=== PATIENT | female | born 1960 | race Caucasian/White ===

== ENCOUNTER 2025-05-01 08:53 | Outpatient (OUT) | payer MEDICARE, SELFPAY ==
--- OUTSIDE RECORDS SUMMARY | 2025-04-29 15:15 | XMS_ITS | Encounter Summary ---
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 [facility] [address] [place] [address] Phone: tel: fax: [facility] [address] [place] [address] Phone: tel: fax: Referral IDStatusReasonStart DateExpiration DateVisits RequestedVisits [id number]/27/20254/ Encounter Details DateTypeDepartmentCare Team (Latest Contact Info)Zsnshbeqgxb40/27/2025 3:15 PM EDTOffice Visit [facility] [address] [place] [phone] Wong Graves, MERRILL 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 Never07/19/2024Humiliation, Afraid, Rape, and Kick questionnaireAnswerDate RecordedWithin the last year, have you been afraid of your partner or ex-partner?No07/19/2024Within the last year, have you been humiliated or emotionally abused in other ways by your partner or ex-partner?No07/19/2024 Within the last year, have you been kicked, hit, slapped, or otherwise physically hurt by your partner or ex-partner?No07/19/2024Within the last year, have you been raped or forced to have any kind of sexual activity by your part ner or ex-partner?No07/19/2024Social Connection and Isolation PanelAnswerDate RecordedIn a typical week, how many times do you talk on the phone with family, friends, or neighbors?Once a week07/19/2024How often do you get together with friends or relatives?Once a week07/19/2024How often do you attend episcopalian or evangelical services?Never07/19/2024Do you belong to any clubs or organizations such as episcopalian groups, unions, fraternal or athletic groups, or school groups?No 07/19/2024How often do you attend meetings of the clubs or organizations you belong to?Never07/19/2024re you , , , , never , or living with a partner?Gtgkvia1507/19/2024UDIT-CAnswerDate RecordedQ1: How often do you have a drink containing alcohol?Never07/19/2024Q2: How many drinks containing alcohol do you have on a typical day when you are drinking? Patient does not drink07/19/2024Q3: How often do you have six or more drinks on one occasion?Never07/19/2024Overall Financial Resource Strain (CARDIA)AnswerDate RecordedHow hard is it for you to pay for the very basics like food, housing, medical care, and heating?Not hard at all07/19/2024PHQ-2AnswerDate Recorded Patient Health Questionnaire-2 [facility] [place] [facility] Occup[facility] - Occupational Stress QuestionnaireAnswerDate RecordedDo you feel stress - tense, restless, nervous, or anxious, or unable to sleep at night because your mind is troubled all the time - these days?Not at all07/19/2024Exercise Vital SignAnswerDate RecordedOn average, how many days per week do you engage in moderate to strenuous exercise (like a brisk walk)?2 days07/19/2024On average, how many minutes do you engage in exercise at this level?30 min07/19/2024Hunger Vital SignAnswerDate RecordedWithin the past 12 months, you worried that your food would run out before you got the money to buymore.Never true07/19/2024 Within the past 12 months, the food you bought just didn't last and you didn't have money to get more.Never true07/19/2024PRAPARE - TransportationAnswerDate RecordedIn the past 12 months, has lack of transportation kept you from medical appointments or from getting medications?No07/19/2024In the past 12 months, has lack of transportation kept you from meetings, work, or from getting things needed for daily living?No07/19/2024Housing Stability Vital SignAnswerDate RecordedIn the last 12 months, was there a time when you were not able to pay the mortgage or rent on time?No03/21/2023In the last 12 months, how many places have you lived?In the last 12 months, was there a time when you did not have a steady place to sleep or slept in ashelter (including now)?No 03/21/2023Housing Stability Vital SignAnswerDate RecordedIn the last 12 months, was there a time when you were not able to pay the mortgage or rent on time?No 07/19/2024In the past 12 months, how many times have you moved where you were living?t any time in the past 12 months, were you homeless or living in a long-term (including now)?No07/19/2024CommentsNoSex and Gender InformationValueDate RecordedSex Assigned at BirthNot on fileLegal SexFemale 09/15/2022 11:07 PM EDTGender IdentityNot on fileSexual OrientationNot on file documented as of this encounter Progress Notes * Wong Graves, MERRILL - 04/29/2025 3:15 PM EDT FOOT [facility] VISIT CC: Stress fracture follow up, right foot HPI: This 65 y.o. female with PMH indicated below presents for follow up of right foot stress fracture. Since last visit patient states she has been wearing surgical shoe while ambulating with cane. States she continues to have pain and edema to the region. She relates that she does have osteopeniaand is on Prolia every 6 months for this. States she has not seen her provider in some time regarding this. She relates she has continued compression sleeve but does still have edema. She has historyof stress fracture in the past to her 5th metatarsal. Denies any other pedal complaints. PCP: Keyshawn Schumacher MD Past Medical History: Diagnosis Date Abnormal cortisol level Brain cyst 09/2018 COVID-19 Current use of steroid medication Degenerative disorder of bone Depression with anxiety Dry mouth and eyes Fibromyalgia Hip bursitis, left 03/2019 Hypertension Obesity Orthostatic hypotension Osteoarthritis Osteoporosis Plantar warts Right Foot Rheumatoid arthritis (HCC) Secondary adrenal insufficiency (HCC) Sjogren syndrome, unspecified (HCC) Sleep apnea Syncope Current Outpatient Medications Medication Sig Dispense Refill acetaminophen (Tylenol) 500 MG tablet Take 500 mg by mouth every 6 (six) hours if needed for mild pain atorvastatin (Lipitor) 20 MG tablet Take 1 tablet (20 mg) by mouth Daily (Patient taking differently: Take 20 mg by mouth Daily) 90 tablet 0 Calcium Carbonate-Vit D-Min (CALCIUM 1200 PO) Take 1,200 mg by mouth Daily cholecalciferol (Vitamin D-3) 125 MCG (5000 UT) capsule Take 5,000 Units by mouth Daily cyclobenzaprine (Flexeril) 10 MG tablet Take 1 tablet (10 mg) by mouth 3 (three) times a day as needed for muscle spasms 30 tablet 2 denosumab (Prolia) 60 MG/ML solution prefilled syringe Inject 60 mg under the skin every 6 (six) months doxepin (SINEquan) 10 MG capsule Take 20 mg by mouth at bedtime DULoxetine (Cymbalta) [address] capsule Take 1 capsule (60 mg) by mouth Daily Do not crush or chew. (Patient taking differently: Take 60 mg by mouth Daily Do not crush or chew.) 90 capsule 1 ertapenem (INVanz) 1 g injection folic acid (Folvite) 1 MG tablet Take 1 mg by mouth Daily hydroxychloroquine (Plaquenil) 200 MG tablet Take 1 tablet by mouth in the morning and 1 tablet before bedtime. lisinopril 5 MG tablet Take 1 tablet (5 mg) by mouth Daily (Patient taking differently: Take 5 mg by mouth Daily) 30 tablet 11 meloxicam (Mobic) 15 MG tablet methotrexate 2.5 MG tablet Take 150 mg by mouth 1 (one) time per week. omega-3 (FISH OIL) 300 MG capsule pregabalin (Lyrica) 150 MG capsule Take 1 capsule (150 mg) by mouth in the morning and 1 capsule (150 mg) before bedtime. 60 capsule 2 Prevnar 20 0.5 ML vaccine riTUXimab (Rituxan) 100 MG/10ML chemo injection Infuse into a venous catheter every 6 (six) months SEMAGLUTIDE SC Inject 1.2 mg under the skin 1 (one) time per week Prescribed by [facility] weight management. [facility] tiZANidine (Zanaflex) 4 MG tablet Take 1 tablet (4 mg) by mouth every 8 (eight) hours if needed formuscle spasms 40 tablet 3 traMADol (Ultram) 50 MG tablet hydrocortisone (Cortef) 10 MG tablet TAKE 2 TABLETS BY MOUTH EVERY MORNING AT BREAKFAST AND TAKE ONE TABLET BY MOUTH EVERY EVENING AT DINNER 180 tablet 3 meloxicam (Mobic) 15 MG tablet Take 1 tablet (15 mg) by mouth Daily 30 tablet 0 No current facility-administered medications for this visit. No Known Allergies Physical examination: There were no vitals taken for this visit. On General Observation: Patient is a pleasant, cooperative, well developed 65 y.o. adult female. The patient is alert and oriented to time, place and person. Patient has normal affect and mood. Vascular: DP and PT pulses are palpable. CFT less than 3 seconds to all digits. Skin temperature iswarm to cool from proximal to distal bilateral. Hair growth is not noted. Mild edema to top of foot, overlying 4th and 5th metatarsal base of right foot. + varicosities noted. Neuro: Light touch intact. Derm: Skin texture and turgor within normal limits. No rashes, subcutaneous nodules, or open lesions noted. No hyperkeratotic tissue. No ecchymosis. Musc: Decreased medial longitudinal arch. Muscle strength is 4/5 for all muscle groups including dorsiflexors, plantarflexors, everters, and inverters. There is pinpoint pain to palpation overlying the dorsal aspect of the 4th metatarsal proximal shaft of the right foot. + pain to 5th metatarsal styloid process and base. There is an accompanying local effusion to this area. No pain to palpation tarsometatarsal joint complex or with range of motion of tarsometatarsal joints. Ankle joint ROM is decreased, STJ, and MTJ ROM full without pain or crepitus bilateral. 04/29/25 Imaging Result: Radiographs: 3 views right foot were taken and reviewed. Radiographic impression: Subacute 5th metatarsal stress fracture with increased sclerosis and concern for recurrent stress fracture vs nonunion. Acute 4th metatarsal lateral midshaft fracture noted with extension of fracture line since last visit without angulation or displacement. No acute osseouschanges. No osteolytic or osteoblastic lesions appreciated. No soft tissue gas. No discernible massnoted. Midfoot OA noted. Bone density appear typical for age of patient. Assessment: Encounter Diagnoses Name Primary? 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 The patient was educated on clinical and radiographic findings, diagnosis and treatment plans. Patient state that she understands all that has been explained and all questions were answered to her apparent satisfaction. Etiology and tx options were discussed in detail with the pt. - Patient seen and evaluated - XR obtained and reviewed with 4th metatarsal stress fracture noted however again appearing incomplete at this time but worsening in comparison to prior film as well as concern for non union vs repeat stress fracture at site of prior 5th metatarsal stress fracture. Patient has pain and edema to site on exam. Discussed need for CT to evaluate nonunion of site and possible need for bone stimulator. - Discussed need for protected weightbearing and modification of activity to allow for healing. Continue limited WB with surgical shoe. Advised patient to wear at all times weightbearing. Ok to remove at rest. -Continue Vitamin D supplement as well as calcium in diet. Patient to contact Dr. Gallardo regarding her osteopenia and now 2x stress fracture of her foot to discuss her current care plan. - Advised patient to minimize activity. - Advised patient on use of anti-inflammatories, continue tylenol as needed. RX for Mobic sent to patient pharmacy with instructions for use. - RICE therapy. -CT of Right foot ordered today. Patient will be called to schedule. 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, subsequent encounter Expected: 04/29/2025, Expires: 04/29/2026documented as of this encounter Goals GoalPatient Goal TypeAssociated ProblemsRecent ProgressPatient-Stated?Author Help patient manage antidepressant medication Care PlanPatient on antidepressant monitoring Marisol Fraire, W[employer]HOUSE HANDLER Baseline PHQ-9 Care PlanBaseline PHQ-9NoMarisol Benoit NPdocumented as of this encounter Procedures Procedure NamePriorityDate/TimeAssociated DiagnosisCommentsXR FOOT 3+ VIEWS ZXLJYNvcdozq76/27/2025 4:09 PM EDT Stress fracture of right foot with routine healing, subsequent encounter Right foot pain documented in this encounter Results * XR foot 3+ views right (04/29/2025 4:09 PM EDT)Anatomical RegionLaterality ModalityLower Extremities, FootRightRadiographic ImagingSpecimen (Source) Anatomical Location / LateralityCollection Method / VolumeCollection Time Received Time Narrative 04/29/2025 4:09 PM EDT Imaging Result: Radiographs: 3 views right foot were taken and reviewed. Radiographic impression: Subacute 5th metatarsal stress fracture with increased sclerosis and concern for recurrent stress fracture vs nonunion. Acute 4th metatarsal lateral midshaft fracture noted with extension of fracture line since last visit without angulation or displacement. No acute osseous changes. ??No osteolytic or osteoblastic lesions appreciated. No soft tissue gas. ??No discernible mass noted. Midfoot OA noted. Bone density appear typical for age of patient. 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, subsequent encounter documented in this encounter Additional Health Concerns Active ProblemsNoted DateDiagnosed DatePatient on antidepressant monitoring plan 3Baseline PHQ-9002/23/2023ssessmentNoted TimePHQ-9 Depression Total Score: 7009/06/2023 9:05 AM ESTdocumented as of this encounter Care Teams Team MemberRelationshipSpecialtyStart DateEnd Date Keyshawn Schumacher MD [address] [place] [address] PCP - GeneralFamily Medicine11/25/22 Marisol Benoit NP [address] [place] [address] PCP - Guero MARTINEZ02/01/25 Estefany Serrano [employer]ER [address] [place] [address] Nurse PractitionerFamily [facility]03/14/25documented as of this encounter
--- OUTSIDE RECORDS SUMMARY | 2025-04-30 06:28 | XMS_ITS | Continuity of Care Document ---
Author Organization [facility] Address [address] [place] [address] Phone Care Team Providers Care Paving Contractor Name Role Phone Keyshawn Schumacher MD Primary Care Provider Delia Mcgowan APRN Attending Provider Anthony Crockett MD Attending Provider Rosalva Massey DNP Attending Provider [phone] Keo Coon MD Referring Provider [phone] Renard Monroe DO Attending Provider [phone] Rosalva Perez DOOR BUILDER-C Attending Provider Unav Rosalva Steve DOOR BUILDER-C Referring Provider Unav ailable Anthony Tripp MD Attending Provider Care Teams Patient Care Team Team Status: Active Member Role/Relationship Status Dates Keyshawn Schumacher MD Primary Care Provider Active Visit Care Team Team Status: Inactive Member Role/Relationship Status Dates Keyshawn Schumacher MD Primary Care Provider Active S tart: January 31, 2025 End: January 31, 2025Steven Reyes ProviderActiveStart: January 31, 2025 End: January 31, 2025 Visit Care Team Team Status: Inactive Member Role/Relationship Status Dates Keyshawn Schumacher MD Primary Care Provider Active S tart: February 07, 2025 End: February 07, 2025Thomas Olexa , MDAttending ProviderActiveStart: February 07, 2025 End: February 07, 2025 Visit Care Team Team Status: Inactive Member Role/Relationship Status Dates Keyshawn Schumacher MD Primary Care Provider Active S tart: February 20, 2025 End: February 20, 2025Elena Turovskaya , APRNAttending ProviderActiveStart: February 20, 2025 End: February 20, 2025 Visit Care Team Team Status: Inactive Member Role/Relationship Status Dates Keyshawn Schumacher MD Primary Care Provider Active S tart: February 21, 2025 End: February 21omas Olexa , MDAttending ProviderActiveStart: February 21, 2025 End: February 21, 2025 Visit Care Team Team Status: Inactive Member Role/Relationship Status Dates Keyshawn Schumacher MD Primary Care Provider Active S tart: February 26, 2025 End: February 26, 2025Elena Turovskaya , APRNAttending ProviderActiveStart: February 26, 2025 End: February 26, 2025 Visit Care Team Team Status: Inactive Member Role/Relationship Status Dates Keyshawn Schumacher MD Primary Care Provider Active S tart: March 05, 2025 End: March 05, 2025Jekg Massey , DNPAttending ProviderActiveStart: March 05, 2025 End: March 05, 2025 Visit Care Team Team Status: Inactive Member Role/Relationship Status Dates Keyshawn Schumacher MD Primary Care Provider Active S tart: March 19, 2025 End: March 19, 2025Thomas Olexa , MDAttending ProviderActiveStart: March 19, 2025 End: March 19, 2025Mattroger Coon MDReferring ProviderActiveStart: March 19, 2025 End: March 19, 2025 Visit Care Team Team Status: Inactive Member Role/Relationship Status Dates Keyshawn Schumacher MD Primary Care Provider Active S tart: April 04, 2025 End: April 04, 2025Renard Monroe DOAttending ProviderActiveStart: April 04, 2025 End: April 04, 2025 Visit Care Team Team Status: Active Member Role/Relationship Status Dates Keyshawn Schumacher MD Primary Care Provider Active S tart: April 04, 2025 Rosalva Perez DOOR BUILDER-CAttending ProviderActiveStart: April 04, 2025 Rosalva Perez DOOR BUILDER-CReferring ProviderActiveStart: April 04, 2025 Visit Care Team Team Status: Inactive Member Role/Relationship Status Dates Keyshawn Schumacher MD Primary Care Provider Active S tart: April 09, 2025 End: April 09, 2025Thfrancisco Tripp MDAttending ProviderActiveStart: April 09, 2025 End: April 09, 2025 Visit Care Team Team Status: Inactive Member Role/Relationship Status Dates Keyshawn Schumacher MD Primary Care Provider Active S tart: April 10, 2025 End: April 10, 2025Renard Monroe DOAttending ProviderActiveStart: April 10, 2025 End: April 10, 2025 Visit Care Team Team Status: Active Member Role/Relationship Status Dates Keyshawn Schumacher MD Primary Care Provider Active S tart: April 29, 2025 Renardterese Monroe DOAttending ProviderActiveStart: April 29, 2025 Patient Care Team Team Status: Inactive Member Role/Relationship Status Dates Keyshawn Schumacher MD Primary Care Provider Active S tart: April 30, 2025 End: April 30, 2025Jekg Massey DNPAttending ProviderActiveStart: April 30, 2025 End: April 30, 2025 Chief Complaint and Reason for Visit Chief Complaint Admit Date 2 wk po staple removed January 31, 2025 1 0:38am M81.0 February 07, 2025 10: 15am Z98.1 February 20, 2025 7: 11am DEXA SCAN RESULTS February 21, 2025 8: 52am po February 26, 2025 8: 15am 8 week March 05, 2025 9:42am m85.80 z78.0 e83.51 m05.79 m15.0 z79.899 March 19, 2025 8:06am Z98.1 M47.816 April 04, 2025 7: 29am M81.0 April 04, 2025 1: 47pm RECHECK April 09, 2025 2: 32pm po check April 10, 2025 8: 13am Spondylosis of lumbar spine April 8:00am 8 week April 30, 2025 9 :21am Reason for Visit Admit Date History of lumbar fusion January 31, 2025 10:38am Encounter for medication management Augu 2024 8:52am Hx of fracture February 21, 2025 8: 52am Low calcium levels February 21, 2025 8: 52am Osteopenia February 21, 2025 8: 52am Post-menopausal February 21, 2025 8: 52am Lumbar spondylosis February 26, 2025 8: 15am Abnormal weight gain March 05, 2025 9:42am Arthritis of both hips March 05 9:42am Arthritis of lumbosacral spine March 05, 2025 9:42am BMI 45.0-49.9, adult March 05, 2025 9:42am Chronic pain March 05, 2025 9:42am Chronic steroid use March 05, 2025 9:42am DDD (degenerative disc disease), cervica l March 05, 2025 9:42am Dietary surveillance and counseling Mar 9:42am Exercise counseling March 05, 2025 9:42am Fibromyalgia March 05, 2025 9:42am Hypertension March 05, 2025 9:42am Obesity, Class III, BMI 40-49.9 (morbid obesity) March 05, 2025 9:42am ILIANA on CPAP March 05, 2025 9:42am Osteoporosis March 05, 2025 9:42am Rheumatoid arthritis March 05, 2025 9:42am Sjogren's disease March 05, 2025 9:42am Arthritis of lumbosacral spine April 092024 2:32pm Cervical spine pain April 09, 2025 2: 32pm Chronic pain April 09, 2025 2: 32pm Myalgia April 09, 2025 2: 32pm Trochanteric bursitis of right hip Octob 2024 2:32pm Lumbar spondylosis April 10, 2025 8: 13am Abnormal weight gain April 30, 2025 9:21am Arthritis of both hips April 30 9:21am Arthritis of lumbosacral spine April 042024 9:21am BMI 45.0-49.9, adult April 30, 2025 9:21am Chronic pain April 30, 2025 9 :21am Chronic steroid use April 30, 2025 9 :21am DDD (degenerative disc disease), cervica l April 30, 2025 9:21am Dietary surveillance and counseling Octo 2024 9:21am Exercise counseling April 30, 2025 9 :21am Fibromyalgia April 30, 2025 9 :21am Hypertension April 30, 2025 9 :21am Obesity, Class III, BMI 40-49.9 (morbid obesity) April 30, 2025 9:21am ILIANA on CPAP April 30, 2025 9 :21am Osteoporosis April 30, 2025 9 :21am Rheumatoid arthritis April 30, 2025 9:21am Sjogren's disease April 30, 2025 9 :21am Reason for Referral Type Reason(s) Provider Provider Contact Information P rovider Address Start Date Spondylosis of lumbar spine M47.816 - Spondylosis without myelopathy or radiculopathy, lumbar zwtprdA84.816 - Spondylosis without myelopathy or radiculopathy, lumbar regionBone Yocha Dehe Physical TherapyWork Phone: [phone] [employer] [facility] [place] [id number] [address]24 Allergies, Adverse Reactions, Alerts Allergen Type Severity Reaction Last Updated Verified Status No Known Allergies Allergy Unknown April 30, 2025 9:58amYesActive Social History Smoking Status Status Start Date End Date Date of Observa tion Never smoked tobacco (finding) January 17, 2025 7:01am Observation Status Observation Response Date of Response Legal Sex Female (finding) [facility] Family History Relationship Condition Age at Onset Recorded Date/T isadora mother Unknown Malignant neoplasm of lungUnknownMalignant neoplasmUnknownfatherHeart disease UnknownMyocardial infarctionUnknownDeceasedUnknownsisterType 2 diabetes mellitus UnknownOverweightUnknownDeceasedUnknown Problems Active Problems Problem Diagnosis/Recorded Date Onset Date Stat us Right carpal tunnel syndrome June 28, 2024 10:58 am Unknown Active Cervical spine pain April 09, 2025 3:19pm Unknown Active Cataracts, bilateral April 23, 2021 1:32pm Unknown Active Sjogren's disease August 09, 2022 12:56pm Unknown Active Rheumatoid arthritis August 17, 2019 2:16pm Unknow n Active Class 3 severe obesity with body mass index (BMI) of 50.0 to 59.9 in adult August 23, 2024 10:49am Unknown Active Exercise counseling August 23, 2024 9:51am Unknown Active Other longterm (current) drug therapy January 24, 2024 4:01pm Unknown Active Trochanteric bursitis of right hip July 19, 2024 4:41pm Unknown Active Lumbar radiculopathy April 06, 2024 3:25pm Unknown Active ILIANA on CPAP August 23, 2024 10:35am Unknown Active Lumbar stenosis January 09, 2025 1:43pm Unknown Act savanna Other spondylosis with radic ulopathy, lumbar region September 10, 2023 12:26pm Unknown Active Fracture of right proximal ulna July 05, 2024 11:0 6am Unknown Active Chronic steroid use March 31, 2024 1:19am Unknow n Active Status post total knee repla cement, left May 12, 2021 11:01am Unknown Active Myalgia April 09, 2025 3:19pm Unknown Act savanna Encounter for medication management January 11, 2025 10 :06am Unknown Active Fibroid uterus August 17, 2019 5:11pm Unknown Active Chronic pain September 10, 2023 12:26pm Unknown Acti ve Osteoporosis August 17, 2019 2:17pm Unknown A ctive Dietary surveillance and counseling August 23 9:51am Unknown Active Polyp of gallbladder August 17, 2019 5:11pm Unknow n Active Osteoarthritis of right hip July 19, 2024 4:39pm Unknown Active Abnormal weight gain August 23, 2024 9:51am Unknow n Active Fibromyalgia August 17, 2019 2:17pm Unknown A ctive Post-menopausal January 11, 2025 10:06am Unknown A ctive Osteopenia February 19, 2025 2:48pm Unknown Act savanna Arthritis of both hips July 19, 2024 4:38pm Unkno wn Active History of lumbar fusion January 31, 2025 10:44am Unkno wn Active DDD (degenerative disc disea se), cervical May 01, 2024 11:28am Unknown Active Ulnar fracture March 31, 2024 1:18am Unknown Active BMI 50.0-59.9, adult August 23, 2024 10:49am Unkno wn Active BMI 45.0-49.9, adult November 15, 2024 9:55am Unknown Active Hx of fracture February 19, 2025 2:49pm Unknown A ctive Obesity, Class III, BMI 40-4 9.9 (morbid obesity) November 15, 2024 9:55am Unknown Active Osteoarthritis of carpometac arpal joint of right thumb June 28, 2024 10:57am Unknown Active Hypertension November 15, 2024 10:04am Unknown Activ e Constipation August 23, 2024 10:32am Unknown Active Lumbar spondylosis December 31, 2024 10:06am Unknown Active Arthritis of lumbosacral spine September 10, 2023 12:26pm Unknown Active Arthritis of lumbosacral spine May 01, 2024 11:2 8am Unknown Active Arthritis of right elbow July 05, 2024 11:06am Unk nown Active Arthritis of right wrist May 01, 2024 11:28am Un known Active Low calcium levels February 21, 2025 9:24am Unknown Active Inactive/Resolved Problems Problem Diagnosis/Recorded Date Onset Date Stat us Abscess of lower back June 06, 2024 5:23pm Unknow n Resolved Leg muscle spasm April 06, 2024 3:21pm Unknown Resolved Postoperative pain of extremity July 03, 2020 9: 31am Unknown Resolved COVID-19 June 09, 2020 1:36pm Unknown Re solved De Quervain's tenosynovitis, right June 29, 2024 11:20am Unknown Resolved Trigger finger, right ring finger June 29, 2024 11:20am Unknown Resolved Trigger finger, left index finger May 01, 2024 1 1:28am Unknown Resolved Trigger ring finger of left hand May 01, 2024 11 :28am Unknown Resolved Trochanteric bursitis, left hip May 01, 2024 11: 28am Unknown Resolved Carpal tunnel syndrome August 19, 2022 3:51pm Unkn own Resolved Impaired mobility and activi ties of daily living April 04, 2024 1:52pm Unknown Resolved Receiving intravenous antibi otic treatment as outpatient July 09, 2024 4:37pm Unknown Resolved Acute exacerbation of chroni c low back pain March 30, 2024 11:55am Unknown Resolved Osteoarthritis of left hip September 10, 2023 12:26pm Unk nown Resolved Intractable back pain March 30, 2024 10:32pm Unk nown Resolved Uncontrolled pain April 06, 2024 3:20pm Unknown Resolved Leukocytosis August 17, 2019 5:11pm Unknown R esolved Rupture of UCL of right thumb August 19, 2022 3:52 pm Unknown Resolved Trigger thumb, right thumb June 28, 2024 10:57am Unknown Resolved Trigger finger August 19, 2022 3:51pm Unknown Resolved Right wrist pain June 29, 2024 11:20am Unknown Resolved Hip pain July 19, 2024 4:26pm Unknown Re solved Cellulitis and abscess of ot her specified site June 07, 2024 10:56am Unknown Resolved Abdominal pain August 17, 2019 5:11pm Unknown Resolved Paraspinal abscess June 06, 2024 10:57pm Unknown Resolved Arthritis of carpometacarpal (CMC) joint of thumb July 03, 2020 9:32am Unknown Resolved Fall March 31, 2024 1:18am Unknown Resolved Medications Medication Status Dose Units Route Directions Qty Days Refills S tart Date Stop Date End Date Reason(s) Instructions Adherence Meloxicam 15 mg tablet Discontinued 0 .ROUTE.DGRCCFO228Pnanxb 2023 9:11amMarch 2024 8:30amTAKE 1 TABLET BY MOUTH DAILYMeloxicam 15 mg tabletDiscontinued0.ROUTE.IYMFNWW139Ndnqk 2024 8:30amJune 2024 1:09pmTAKE 1 TABLET BY MOUTH DAILYSemaglutide/NAM/MeCbl 0.3 mg/0.25 mLDiscontinued0.25MLSUBCUTevery oexj7008Hql 2024 12:00amMay 2024 10:04amClass 3 severe obesity with body mass index (BMI) of 50.0 to 59.9 in adult Body mass index (BMI) of 50.0 to 59.9 in adult Obesity, class 3 Morbid (severe) obesity due to excess calories Body mass index [BMI] 50.0-59.9, adultBuderer Drug Compounded Pre-filled Syringes using Semaglutide Base 0.3 mg/Niacinamide 0.25 mg and Methylcobalamin 1 mcg Dispense 1 mL - (Four 0.25 mL pre-filled syringes)Meloxicam 15 mg tablet Discontinued0.ROUTE.GGMPRNG550Tpxt 2024 1:09pmJuly 2024 1:39pmTAKE 1 TABLET BY MOUTH DAILYCalcium Carbonate 500 mg calcium (1,250 mg) vbrcrcRssudf962 MGPOThree times jfxiu54830Yhqptx 2024 12:00amComplies with drug therapy Citalopram (Celexa) 20 mg JqcfpoKcijjlktgnzt45VOPLDemfl morningbruary 2019 1:00amAugust 2023 9:35amMethotrexate Sodium 15 mg TabletDiscontinued 25MGPOevery weekFebruary 2019 1:00amDeceer 2019 10:24amFolic Acid 1 mg TvdxdcEpljzktzrxzt4BEOCCcwgi morningFebruary 2019 1:00amOctcarroll county memorial hospital 2023 12:03pmHydroxychloroquine 200 mg QijwdzYyeowtcqwhmd393ZVMEErpqz daily August 17, 2019 1:00amJuly 2024 9:07amRARituximab (Rituxan) 10 mg/mL DwwlrikpdalJyvmibzzstws68HSJHVNYSJ 6 MONTHSFebruary 2019 1:00amNoveer 2020 9:08amSjogren'sDuloxetine (Cymbalta) 60 mg Capsule,Delayed Release(Dr/Ec)Jdfarkyynnuq51PWWJIgqqp morningbruary 2019 1:00amOctcarroll county memorial hospital 2023 12:03pmOmega 8-Whc-Nyl-Fish Oil (Fish Oil) 1,000 mg (120 mg-180 mg) ZjplqojPqnusunrwwwr4DZKAJNqjujRgrzhglp 2019 1:00amOctcarroll county memorial hospital 2023 12:03pmMeloxicam 15 mg HbsqyvOndisieiimqa29PRNYBilmaUmzcvmsa 2019 1:00am May 12, 2021 9:09amarthritisCalcium Carbonate (Calcium 600) 600 mg calcium (1,500 mg) QlkpfjQgekuqfyhlfd8860FKUOZmxktPdzfhplh 2019 1:00amOctober 2023 12:92viMo-Qi-Ftho-Fa-Herbal Cmplx#190 (Vitamin D3 Complete) 18 mg iron-800 mcg-150 mg WegnbfFnyrqiqczagg415JUHXTqbojZjrocsqi 2019 1:00am April 17, 2024 12:03pmGlucos Sul 8xnj-Jqe-Oyjgr-C-Mn (Glucosamine Chondroitin) 550-30-1 mg QqqjqrbVcznhxwokjeo7AXXXDBwitsYwtcuqqs 2019 1:00amOctober 2023 12:03pmLisinopril 10 mg zymferOpolzjveadej89YIRZTbfxc morningDecember 2019 1:00amOctober 2020 1:44pmHydroxyzine Pamoate 50 mg CdhngbjCvrxkvumydsd70JIXEC9Y as needed for Muscle Xlxfp0Hoosvwkp2020 1:00amFebruary 2022 12:48pmAspirin 81 mg Tablet,Delayed Release (Dr/Ec) Lqqvqvsbifhc22WUDLLecze sxbmf8Udzcwjfl2020 1:00amFebruary 2022 12:47pmOxycodone 5 mg OmjdxtGskkcfkxpkux80ADSPAnuzg 4 hours as needed for Pain Scale 6 - 100November 2020February 2022 12:48pmOxycodone 5 mg Tablet Yunttqenbxxw2RXAYLvmwy 4 hours as needed for Pain Scale 1 - 50November 2020August 09, 2022 12:49pmAtorvastatin 20 mg pjbcehXjfvfg40FPDBIrgag morning March 30, 2024 12:00amComplies with drug therapyDoxepin 10 mg capsule Dukqanusjypm71EPSNOecgb dailySept2023 12:00amOctober 2023 12:03pmHydrocortisone 10 mg uecdrfEtpygf01PZIJSduhj morningSept2023 12:00amComplies with drug therapyPrednisone 20 mg fqizcfQyhvnehrgojz88XLHSVyigi 100Sept2023 12:00amOctober 2023 10:56pmadminister with food or milkOxycodone-Acetaminophen (Percocet) 5-325 mg aeklyfZvbqtrjssobu3SXSKUHouty 8 hours as needed for ujna307Mnwykbogl 2023October 2023 1:36pmAcute exacerbation of chronic low back pain Low back pain, unspecified Other chronic painPregabalin 150 mg ybpxcwnLrqyph842QHNDUtbxz dailySept2023 12:00amComplies with drug therapyAcetaminophen (Tylenol) 325 mg TxdeuuDbpkgbwlbjny237TWNEV2T as needed for Mild Qagd73228Eefdeby 2023 12:00amOctober 2023 4:11pmSennosides-Docusate Sodium 8.6-50 mg Tablet Etzapwfublnl4IPKOPMdlui iktzm14408Wryadxw 2023 12:00amOctober 2023 12:03pmFamotidine 20 mg JyconrXeepppcmieqd67RAOCVmgpi llfwl59004Xhosymp 2023 12:00amOctober 2023 12:03pmOxycodone 5 mg VgiyksVtlbvgttnjzo9VEHUP5L as needed for Pain Scale 1 - 5930Octcarroll county memorial hospital 2023October 2023 12:03pm Intractable back pain Dorsalgia, unspecifiedMethotrexate Sodium 2.5 mg qniqakEwfxwnsvlpkq59WHRSdskzz weekDeceer 2019 1:00amNoveer 2020 9:08amRAtake on tuesday Hydrocodone-Acetaminophen (Lyman) 5-325 mg tabletDiscontinued1 - 2TABPOEVERY 4-6 HOURS as needed for lggc5277Nsvilvoh 2019October 2020 1:44pm Postoperative pain of extremity Arthritis of carpometacarpal (CMC) joint of thumb Other acute postprocedural painDoxycycline Hyclate 100 mg waffjrUlkihdixzmya556 MGPOTwice unrac8308Idzzymfk 2019 1:00amOctober 2020 1:43pmMeloxicam 15 mg zwxbkqNsogapjscrod85WUXVLunsy eveningFebruary 2022 1:00amAugust 2023 9:11amMethotrexate Sodium 2.5 mg eycglvNczdgzxtvmpt29ZCXOkgzur week August 09, 2022 1:00amJuly 2024 9:07amevery tuesdayAmitriptyline 25 mg GoanzrBpjnpsuleirm84CRKNXhlez at bedtimeFebruary 2022 1:00amOctober 2023 12:03pmRomosozumab-Aqqg (Evenity) 105 mg/1.17 mL VylzsyvMtdfctmkqilx399MA ZDHEMHA20PJmefkrza 2022 1:00amDecember 2022 8:19amRituximab (Rituxan) 10 mg/mL FmftrbshnyvUssgqpcknrkd72YEKEAGFLO 6 MONTHSFebruary 2022 1:00am January 24, 2024 3:49pmHydrocodone-Acetaminophen 5-325 mg tabletDiscontinued1 - 2 TABPOEVERY 4-6 HOURS as needed for qnjh5740Hyemrbkc ecember 2022 8:19amPostoperative pain of extremity Carpal tunnel syndrome Trigger finger Rupture of UCL of right thumb Other acute postprocedural pain Carpal tunnel syndrome, unspecified upper limb Trigger finger, unspecified finger Sprain of metacarpophalangeal joint of right thumb, initial encounterDoxycycline Hyclate 100 mg vbflsbTqrickwqgzie151DHQVQrewr wpzbl7447Cwlkhnyd 2022 1:00amJune 2023 8:14amHydrocortisone (Cortef) 10 mg uyuzyuDrnndq18EVWV BedtimeOctober 2023 12:00amComplies with drug therapyCyclobenzaprine 10 mg fihxufWgwlvsebcjva48KFPMXzliw times daily as needed for muscle spasmsOctober 2023 12:00amJuly 2024 9:07amAcetaminophen 500 mg TabletDiscontinued 323JOKOM9E as needed for Slis365357Ychftcg 2023 12:00amJuly 2024 9:07amSennosides-Docusate Sodium 8.6-50 mg OujrybPsqolexxxkhl4TARTJNwimt daily40 100October 2023 12:03pmFebruary 2024 10:29amDoxepin 10 mg capsule Qakkaqpcuadw18RWTLBmbfm sykpc70033Cptzrez 2023 12:03pmDecember 2023 6:58pmCalcium Carbonate (Calcium 600) 600 mg calcium (1,500 mg) Tablet Zxxqentuvuds6253PRVAOgoht30680Jodksly 2023 12:03pmFebruary 2024 10:29amFamotidine 20 mg UsjwhzXaalgy83CGHJEspwd jflys15020Galjlqc 2023 12:03pmComplies with drug therapyAmitriptyline 25 mg HiebdbRulmeliluklc24WFRJ Daily at qhqubgn11525Hgsrquo 15th, 2024 12:03pmDeceer 2023 6:53pmFolic Acid 1 mg DoylrgEcenct9OYXJQdgof xwaexpc50627Xfgdojw 15th, 2024 12:03pmOn Hold: Resume on 01/24/25.Complies with drug therapyOxycodone 5 mg TabletDiscontinued5 DMCJB7R as needed for Pain Scale 1 - 72513Kafhkxf 2023October 2023 9:17amIntractable back pain Dorsalgia, unspecifiedDuloxetine (Cymbalta) 60 mg Capsule,Delayed Release(Dr/Ec) Hnnlzs19DCDOSawmg xgsiysa77014Tvcgizh 2023 12:03pmComplies with drug therapyOmega 5-Wgt-Jpz-Fish Oil (Fish Oil) 1,000 mg (120 mg-180 mg) Capsule Acqgepiebyel1RJEAASajwr31508Glzlqot 2023 12:03pmJuly 2024 9:07am Cx-Je-Mvze-Fa-Herbal Cmplx#190 (Vitamin D3 Complete) 18 mg iron-800 mcg-150 mg AdruajGyrnwt116UNPLUuqsu27855Ibjwdpq 2023 12:03pmComplies with drug therapyGlucos Sul 1viu-Lax-Tawml-C-Mn (Glucosamine Chondroitin) 550-30-1 mg UmoiysxUtlvwcsfnhgq5VOKEQAhubr23443Rkmkpzi 2023 12:03pmDecember 2023 6:58pmDoxepin 10 mg lkgazpnJmqdhg19KWDFEziid dailyascension [facility]20[facility] 1:00am Complies with drug therapyGlucos Sul 7nxs-Pgu-Fbecz-C-Mn (Glucosamine Chondroitin) 550-30-1 mg ScnjslpVfoefcjqljjh4QIESMGenlx daily2023 1:00amDecember 2023 12:18pmErtapenem 1 gram Recon IegvHvupljyellco4YWPM T51G37249Xmmshjrp 2023 1:00amFebruary 2024 10:28amMeloxicam 15 mg fconchQhrzjtlkcnip82PRMTJhcdg at bedtimeJuly 2024 12:00amJuly 2024 9:07amTAKE 1 TABLET BY MOUTH DAILYCyclobenzaprine 10 mg etovxiNynsqejdlmnq94TQAW Three times daily as needed for back ncxsau893Dekm 2024 12:00amOctober 2024 2:52pmCephalexin 500 mg pujxqbjZnppikfenmrk944NZEKRmmkz times uvktx216 January 19, 2025 12:00amJuly 2024 10:43amOxycodone 5 mg tabletDiscontinued5 MGPOEVERY 4-6 HOURS as needed for fjeg4198Xmbr 2024July 2024 11:05am Spondylosis of lumbar spine Spondylosis without myelopathy or radiculopathy, lumbar regionDenosumab (Prolia) 60 mg/mL yccohlvXjtpzl35LBDPLGGGIQBII 6 MONTHSJuly 2023 12:00amComplies with drug therapyTramadol 50 mg gjspqeFnzaeaisuypv93SRKNNkixz daily as needed for zrns65783Dxlf 2023 8:30amJuly 2023 9:14amOther spondylosis with radiculopathy, lumbar region Other spondylosis with radiculopathy, lumbar regionTramadol 50 mg tablet Wkcgobnscwdn79CQHLTzonz daily as needed for boam70737Qees 2023 9:13am March 26, 2024 10:05amOther spondylosis with radiculopathy, lumbar region Other spondylosis with radiculopathy, lumbar regionTramadol 50 mg tablet Rybndprbvrhl01LKGQVkfrl daily as needed for cnig02562Hkjbtlb 2024 4:51pm September 13, 2024 8:47amOther spondylosis with radiculopathy, lumbar region Other spondylosis with radiculopathy, lumbar regionLisinopril 2.5 mg tablet Discontinued2.5MGPODailyMay 2024 12:00amJuly 2024 10:23amTramadol 50 mg rqttrhBhbrcssynaqo62IGUEQtssz daily as needed for fyju45607Yfvhx 2024 8:47amMay 2024 9:02amOther spondylosis with radiculopathy, lumbar region Other spondylosis with radiculopathy, lumbar regionPolyethylene Glycol 3350 (Miralax) 17 gram/dose jrqxaiOftvwk11DLAAXvdcv as needed for constipationNovember 14, 2024 12:00amComplies with drug therapyLactobacillus Combination No.9 (Adult 50 Plus Probiotic) 4 billion cell bqooqrvVguual2030SDJ CELLSPODailyy 2024 12:00amadminister with a mealComplies with drug therapy Semaglutide/NAM/MeCbl 0.6 mg/0.5 mLDiscontinued0.5MLSUBCUTevery 2024 12:00amJuly 2024 10:43amMorbid obesity with body mass index (BMI) of 40.0 to 49.9 Body mass index (BMI) of 45.0 to 49.9 in adult Hypertension Morbid (severe) obesity due to excess calories Body mass index [BMI] 45.0-49.9, adult Essential (primary) hypertensionBuderer Drug Compounded Pre-filled Syringes using Semaglutide Base 0.6 mg/Niacinamide 0.5 mg and Methylcobalamin 2 mcg Dispense 2 mL - (Four 0.5 mL pre-filled syringes)Semaglutide/NAM/MeCbl 0.6 mg/0.5 mLDiscontinued0.5MLSUBCUTevery 2024 12:00amJuly 2024 10:23amBuderer Drug Compounded Pre-filled Syringes using Semaglutide Base 0.6 mg/Niacinamide 0.5 mg and Methylcobalamin 2 mcg Dispense 2 mL - (Four 0.5 mL pre-filled syringes)Semaglutide/NAM/MeCbl 0.6 mg/0.5 mLDiscontinued0.5MLSUBCUTevery 2024 12:00amJuly 2024 10:23amBody mass index (BMI) of 45.0 to 49.9 in adult Morbid obesity with body mass index (BMI) of 40.0 to 49.9 Hypertension Body mass index [BMI] 45.0-49.9, adult Morbid (severe) obesity due to excess calories Essential (primary) hypertensionBuderer Drug Compounded Pre-filled Syringes using Semaglutide Base 0.6 mg/Niacinamide 0.5 mg and Methylcobalamin 2 mcg Dispense 2 mL - (Four 0.5 mL pre-filled syringes)Tramadol 50 mg tablet Omgenfrelwyd03TUYGFwnzc daily as needed for lere46218Elu 2024 9:02amJuly 2024 9:07amOther spondylosis with radiculopathy, lumbar region Other spondylosis with radiculopathy, lumbar regionTizanidine 4 mg tabletActive MGPOOctober 2024 12:00amComplies with drug therapyRomosozumab-Aqqg 105 mg/1.17 mL hkfiavnLzlxrourzrvo572MJWNNOFFAYPMH 6 MONTHSMarch 2023 12:00am August 23, 2024 10:29amFreeTextSi.34 mL Subcutaneous; Note: Source Status: Taking; Provider: Chris Blackwell ( )Tramadol 50 mg hkvgmvRnwpvgxlpuun95EEIOYbpez daily as needed for fubb60409Lzicf 2023 12:00amApril 2023 9:06amOther spondylosis with radiculopathy, lumbar region Other spondylosis with radiculopathy, lumbar regionTramadol 50 mg tablet Ahmllkstqqyf73RTVFXjhsr daily as needed for mqyz73857Rycbg 2023 9:06amJune 2023 8:31amOther spondylosis with radiculopathy, lumbar region Other spondylosis with radiculopathy, lumbar regionTramadol 50 mg tablet Lnyhvuhrmzid50KAFQTzjze daily as needed for ybdy42475Siknpjo 2023 12:00am July 19, 2024 4:51pmOther spondylosis with radiculopathy, lumbar region Other spondylosis with radiculopathy, lumbar regionTramadol 50 mg tablet Fyxnptwejcwz55LIOZAdizb daily as needed for kgme60658Dajzexjpg 2023 10:05amOctober 2023 12:04pmOther spondylosis with radiculopathy, lumbar region Other spondylosis with radiculopathy, lumbar regionCalcium Carbonate (Calcium 600) 600 mg calcium (1,500 mg) bcybqpOdejjkfqwvef4919CUZHXmlvxEhsvoxmj 2024 10:27amJuly 2024 9:07amSennosides-Docusate Sodium 8.6-50 mg tablet Lncuux6WGZVYYrxzl daily as needed for constipationFebruary 2024 10:29am Complies with drug therapyTirzepatide (Weight Loss) (Zepbound) 2.5 mg/0.5 mL pen injectorDiscontinued2.5MGSUBCUTevery zyqz3412Exhzfzty 2024 1:00amApril 2024 9:18amOSA on CPAP Class 3 severe obesity with body mass index (BMI) of 50.0 to 59.9 in adult Body mass index (BMI) of 50.0 to 59.9 in adult Obstructive sleep apnea (adult) (pediatric) Obesity, class 3 Morbid (severe) obesity due to excess calories Body mass index [BMI] 50.0-59.9, adultfor 4 weeks and then increase to 5 mg once weekly if tolerating wellSemaglutide Base 0.3 mg/0.25 mLDiscontinued0.25ML SUBCUTevery ipgk5295Gpsrc 3rd, 2025 12:00amMay 2024 8:07amClass 3 severe obesity with body mass index (BMI) of 50.0 to 59.9 in adult Body mass index (BMI) of 50.0 to 59.9 in adult ILIANA on CPAP Obesity, class 3 Morbid (severe) obesity due to excess calories Body mass index [BMI] 50.0-59.9, adult Obstructive sleep apnea (adult) (pediatric)[facility] Pre-filled Syringes using Semaglutide Base. Dispense 1 mL = (Four 0.25 mL pre-filled syringes)Lisinopril 5 mg tabletActive5 MGPOEvery morningJuly 2024 12:00amComplies with drug therapy Semaglutide/NAM/MeCbl 1.2 mg/0.33 mLDiscontinued0.33MLSUBCUTevery week1.75788 January 07, 2025 12:00amJuly 2024 1:39pmOSA on CPAP Morbid obesity with body mass index (BMI) of 40.0 to 49.9 Body mass index (BMI) of 45.0 to 49.9 in adult Hypertension Obstructive sleep apnea (adult) (pediatric) Morbid (severe) obesity due to excess calories Body mass index [BMI] 45.0-49.9, adult Essential (primary) hypertensionBuderer Drug Compounded Pre-filled Syringes using Semaglutide Base 1.2 mg/Niacinamide 0.66 mg and Methylcobalamin 2.6 mcg Dispense 1.32 mL - (Four 0.33 mL pre-filled syringes)Methotrexate Sodium 2.5 mg tabletActive2.5MGPOevery weekSept2024 12:00amComplies with drug therapySemaglutide/NAM/MeCbl 1.2 mg/0.33 mLDiscontinued0.33MLSUBCUTevery week 1.320Sept2024 12:00amSept2024 10:18amBude[facility] Drug Compounded Pre-filled Syringes using Semaglutide Base 1.2 mg/Niacinamide 0.66 mg and Methylcobalamin 2.6 mcg Dispense 1.32 mL - (Four 0.33 mL pre-filled syringes)Semaglutide/NAM/MeCbl 1.8 mg/0.5 mLDiscontinued0.5MLSUBCUTevery piar5907Cmxwdezav 2nd, 2025 12:00amOctober 2024 10:14amMorbid obesity with body mass index (BMI) of 40.0 to 49.9 Body mass index (BMI) of 45.0 to 49.9 in adult ILIANA on CPAP Morbid (severe) obesity due to excess calories Body mass index [BMI] 45.0-49.9, adult Obstructive sleep apnea (adult) (pediatric)[facility] Pre-filled Syringes using Semaglutide Base 1.8 mg/Niacinamide 1 mg and Methylcobalamin 4 mcg Dispense 2 mL - (Four 0.5 mL pre-filled syringes)Oxycodone 5 mg tablet Tovteubmrvov4LKZKKTCPH 4-6 HOURS as needed for kfoc3769Kagx 2024Sept2024 10:00amSpondylosis of lumbar spine Spondylosis without myelopathy or radiculopathy, lumbar regionMeloxicam 15 mg aavmfeFbarix38QIIQVnldpHmenzuy 2024 12:00amComplies with drug therapy Tramadol 50 mg cyodtnJpysvv92IAUGZthso dailyOctcarroll [facility] hospital 2024 12:00amComplies with drug therapyHydroxychloroquine 200 mg ziibzfFssccn904HAEGTgfxSgfcuxl 2024 12:00amComplies with drug therapySemaglutde/NAM/MeCbl 2.268 mg/0.63 mL Active0.63MLSUBCUTevery week2.39669Vlsybls 2024 12:00amMorbid obesity with body mass index (BMI) of 40.0 to 49.9 Body mass index (BMI) of 45.0 to 49.9 in adult Hypertension ILIANA on CPAP Morbid (severe) obesity due to excess calories Body mass index [BMI] 45.0-49.9, adult Essential (primary) hypertension Obstructive sleep apnea (adult) (pediatric)[facility] Pre-filled Syringes using Semaglutide Base 2.268 mg/Niacinamide 1.26 mg andMethylcobalamin 5 mcg Dispense 2.52 mL - (Four 0.63 mL pre-filled syringes)Complies with drug therapy Immunizations Immunization Event Date Not Given Reason Dose Number Inspector Elevators Lot Number Reason(s) Given Vaccine Information Statement (VIS) Detail Administration Location COVID-19 mRNA [place] (Polar) September 10 COVID-19 mRNA [place] (Polar)October 01OVID-19 mRNA, [place] (Polar)April 091Pneumococcal Conjugate Vaccine, 13 valentFebruary 1Pneumococcal Polysacc. Vaccine, 23 valentJanuary 2018Quadrivalent InfluenzaOctober 2018Quadrivalent InfluenzaAugust 2019Zoster Vaccine Recombinant, AdjuvantedAugust 2020Tetanus, Diphtheria adult, 5 Lf pres free absFebruary 2020 Medical Equipment Device Date Implanted Device Details Tendon/ligament bone anchor, non-bioabsorbable August 19, 2022 GRAHAM: [id number] Issuing Agency: [facility] Device Id: [id number] Expiration Date: 2026-10-01 Lot Number: [id number]/ligament bone anchor, non-bioabsorbableDecember 2019UDI: ()[id number] Issuing Agency: [facility] Device Id: [id number] Expiration Date: 2025-04-02 Lot Number: [id number] cement, non-medicatedNovember 2020UDI: ()[id number] Issuing Agency: [facility] Device Id: [id number] Expiration Date: 2025-04-02 Lot Number: [id number] cement, non-medicatedNovember 2020UDI: ()[id number] Issuing Agency: [facility] Device Id: [id number] Expiration Date: 2025-04-02 Lot Number: [id number] knee femur prosthesis, metallicNovember 2020 GRAHAM: ()[id number] Issuing Agency: [facility] Device Id: [id number] Expiration Date: 2027-07-03 Lot Number: [id number] insertNovember 2020UDI: ()[id number] Issuing Agency: [facility] Device Id: [id number] Expiration Date: 2025-11-13 Lot Number: [id number] patella prosthesisNovember 2020UDI: ()[id number] Issuing Agency: [facility] Device Id: [id number] Expiration Date: 2025-12-18 Lot Number: [id number] stemNovember 2020UDI: ()[id number] Issuing Agency: [facility] Device Id: [id number] Expiration Date: 2031-02-07 Lot Number: [id number] knee tibia prosthesis, metallicNovember 2020 GRAHAM: ()[id number] Issuing Agency: [facility] Device Id: [id number] Expiration Date: 2031-01-04 Lot Number: [id number] fusion graft kitJuly 2024UDI: ()[id number] Issuing Agency: [facility] Device Id: [id number] Expiration Date: 2026-04-02 Lot Number: [id number] spinal fusion cage, non-sterileJuly 2024 GRAHAM: ()[id number] Issuing Agency: [facility] Device Id: [id number] Lot Number: [id number]-kbrhf internal spinal fixation system, non-sterileJuly 2024UDI: +[id number] Issuing Agency: [facility] Device Id: [id number] internal spinal fixation system, non-sterile January 17, 2025UDI: +[id number] Issuing Agency: [facility] Device Id: [id number]-pzuvb internal spinal fixation system, non-sterile January 17, 2025UDI: +[id number] Issuing Agency: [facility] Device Id: [id number] internal spinal fixation system, non-sterile January 17, 2025UDI: +[id number] Issuing Agency: [facility] Device Id: [id number]-lphey internal spinal fixation system, non-sterile January 17, 2025UDI: +[id number] Issuing Agency: [facility] Device Id: [id number] internal spinal fixation system, non-sterile January 17, 2025UDI: +[id number] Issuing Agency: [facility] Device Id: [id number]-jstli internal spinal fixation system, non-sterile January 17, 2025UDI: +[id number] Issuing Agency: [facility] Device Id: [id number] internal spinal fixation system, non-sterile January 17, 2025UDI: +[id number] Issuing Agency: [facility] Device Id: [id number] internal spinal fixation system, non-sterile January 17, 2025UDI: +[id number] Issuing Agency: [facility] Device Id: [id number]-jacdj internal spinal fixation system, non-sterile January 17, 2025UDI: +[id number] Issuing Agency: [facility] Device Id: [id number] Procedures Procedure Date Performed Status XR lumbar spine 2-3V* February 20, 2025 7:12am c ompleted XR dexa axial skeleton February 07, 2025 10:18am completed XR lumbar spine 2-3V* April 04, 2025 7:32am c ompleted Relevant Diagnostic Tests and/or Laboratory Data Laboratory Results Test Collection Date/Time Result Date/Time Result Interpretation Reference Range Result Comment Performing Site Corrected White Blood Count March 19, 2025 8:08am March 19, 2025 12:21pm 8.5 10*3/uL 3.8-11.6[facility] [id number] [address] [facility] 429[address]Pmuluotzfpm WBC CountSeptember 2024 8:08amSeptember 2024 12:21pm8.5 10*3/uL3.8-11.6FMercy [facility] [id number] [address] [facility] 25150Njn Blood CountSeptember 2024 8:08amSeptember 2024 12:21pm4.61 10*6/uL3.60-5.00[facility] [id number] [address] [facility] 48017RhbxtadpanPoxxffefv 2024 8:08amSeptember 2024 12:21pm13.2 g/dL11.8-15.4FMercy [facility] [id number] [address] [facility] 79981PbquprmrfiNlpgrnvah 2024 8:08amSeptember 2024 12:21pm40.1 %34.0-46.4FMercy Health [facility] [id number] [address] [facility] 08979Ghoz Corpuscular VolumeSeptember 2024 8:08amSeptember 2024 12:21pm87.0 mC54-449UodlxnmpeFirelands [facility] [id number] [address] [facility] 98622Bbcs Corpuscular HemoglobinSeptember 2024 8:08amSeptember 2024 12:21pm28.6 pg24.7-34.3FMercy Health [facility] [id number] [address] [facility] 62622Ibap Corpuscular Hemoglobin ConcentSeptember 2024 8:08am March 19, 2025 12:21pm32.9 g/dL32.0-35.0[facility] [id number] [address] [facility] 50424Fjv Cell Distribution WidthSept2024 8:08amSeptember 2024 12:21pm17.3 %Above high yljnrk38.9-15.3FMercy Health St[facility] [id number] [address] [facility] 43602Yjpgxbcw CountSeptember 2024 8:08amSept2024 12:01mp159 10*3/sO419-246GvweatnzmFirelands [facility] [id number] [address] [facility] 45336Fdsn Platelet VolumeSeptember 2024 8:08amSept2024 12:21pm9.2 fL6.3-10[address]7FMercy [facility] [address] [id number] [address] [facility] 12543Gtcuxkguxir (%) (Auto)March 19, 2025 8:08amSept2024 12:21pm39.0 %.[facility] [id number] [address] [facility] 31646Zyffjfjtonv (%) (Auto)March 19, 2025 8:08amSept2024 12:21pm43.0 %.[facility] [id number] [address] [facility] 06194Ulnhcmydr (%) (Auto)March 19, 2025 8:08amSept2024 12:21pm13.6 %.[facility] [id number] [address] [facility] 07479Fcayayuynus (%) (Auto)March 19, 2025 8:08amSept2024 12:21pm3.9 %.[facility] [id number] [address] [facility] 27353Fibfrwgmr (%) (Auto)March 19, 2025 8:08amSept2024 12:21pm0.5 %.[facility] [id number] [address] [facility] 09860Hnomtjjsz RBC Relative Count (auto)March 19, 2025 8:08am March 19, 2025 12:21pm0.2 /100{WBC}0-0.5FMercy [facility] St[facility] [id number] [address] [facility] 34593Dynipgzgdcj # (Auto)March 19, 2025 8:08amSept2024 12:21pm3.3 10*3/uL1.8-7.7FMercy Health St[facility] [id number] [address] [facility] 33722Kpowqvsapvo # (Auto)March 19, 2025 8:08amSept2024 12:21pm3.7 10*3/uL1.00-4.8[facility] [id number] [address] [facility] 35414Ovwlojexs # (Auto)March 19, 2025 8:08amSept2024 12:21pm1.2 10*3/uLAbove high normal0.0-0.8[facility] [id number] [address] [facility] 25121Kcfodkiwenj # (Auto)March 19, 2025 8:08amSept2024 12:21pm0.3 10*3/uL0.0-0.45[facility] [id number] [address] [facility] 08391Yxiexhxoc # (Auto)March 19, 2025 8:08amSeptember 2024 12:21pm0.0 10*3/uL0.0-0.2FMercy Health St[facility] [id number] [address] [place] [address] 38538Meuafbvbsxy Sedimentation RateSeptember 2024 8:08am March 19, 2025 1:42pm32 mm/hrAbove high normal0-29[facility] [id number] [address] [place] [address] 83671Cfrajtn LevelSeptember 2024 8:08amSept2024 12:32pm81 mg/qA44-475BUT recommended reference rangeRandom Glucose Reference Range is dependent on time and content of last meal. Glucose of more than 200 mg/dL in a nonstressed, ambulatory subject supports the diagnosisof Diabetes Mellitus.[facility] [id number] [address] [facility] 64671Glejm Urea NitrogenSeptember 2024 8:08amSept2024 12:32pm17 mg/dL7-25[facility] [id number] [address] [place] [address] 74718UphrhuuysoOqsetkvww 2024 8:08amSept2024 12:32pm1.00 mg/dL0.60-1.20[facility] [id number] [address] [place] [address] 65395Rdvqhofli GFR (CKD-EPI)March 19, 2025 8:08amSept2024 12:32pm> 60.0 mL/MinFirelands Regional Medical [facility] [id number] [address] [place] [address] 90250Mxvlta LevelSeptember 2024 8:08amSept2024 12:27rg799 mmol/M536-770MuojfuxrkFirelands Regional [facility] [id number] [address] [place] [address] 00134Rpvirzaxx LevelSeptember 2024 8:08amSeptember 2024 12:32pm3.9 mmol/L3.5-5.1FMercy Health St[facility] [id number] [address] [facility] 78305Kftijrig LevelSeptember 2024 8:08amSeptember 2024 12:55zc299 mmol/D16-242DurtvyepjFirelands Regional [facility] [id number] [address] [facility] 70976Sonhes Dioxide LevelSeptember 2024 8:08amSeptember 2024 12:32pm29.2 mmol/L21.0-31.0[facility] [id number] [address] [facility] 82284Pkftk GapSeptember 2024 8:08amSeptember 2024 12:32pm9.7 mEq/L6.0-15.0[facility] [id number] [address] [place] [address] 24157Cmvesvt LevelSeptember 2024 8:08amSeptember 2024 12:32pm9.7 mg/dL8.6-10.3FMercy Health St[facility] [id number] [address] [place] [address] 66368Lbaot ProteinSeptember 2024 8:08amSeptember 2024 12:32pm6.8 g/dL6.4-8.9[facility] [id number] [address] [place] [address] 49433EvzdcvuCnjsbijfc 2024 8:08amSeptember 2024 12:32pm 4.0 g/dL3.5-5.7FMercy Health St[facility] [id number] [address] [place] [address] 29732PoxfcyljHpwabxuie 2024 8:08amSeptember 2024 12:32pm 2.8 g/dLFirelands Regional Medical Center [facility] [id number] [address] [place] [address] 97072Sdeqefp/Globulin RatioSeptember 2024 8:08amSeptember 2024 12:32pm1.4FMercy Health [address] [id number] [address] [place] [address] 27445Bxfhs BilirubinSeptember 2024 8:08amSeptember 2024 12:32pm0.4 mg/dL0.3-1.0[facility] [id number] [address] [place] [address] 42673Twdiqysha Amino Transf (AST/SGOT)March 19, 2025 8:08am March 19, 2025 12:32pm20 U/C70-52SmlvzhcavFirelands Regional [facility] [id number] [address] [place] [address] 37585Rfluapz Aminotransferase (ALT/SGPT)March 19, 2025 8:08am March 19, 2025 12:32pm17 U/L7-52[facility] [id number] [address] [place] [address] 52596Avxyuqjv PhosphataseSeptember 2024 8:08amSeptember 2024 12:32pm66 U/D75-474UjzgdrkpuFirelands Regional [facility] [id number] [address] [place] [address] 64566Iexleann Creatinine Clearance (ChemSeptember 2024 8:08am March 19, 2025 12:32pmN/[facility] [id number] [address] [place] [address] Diagnostic Imaging Reports Author Lorne Bermudez [facility] HamiltonAuthoredAuminers' colfax medical centert 2024 2:09pmReportDictated Date/TimeDictated ByStatusRadiology ReportAuminers' colfax medical centert 2024 2:09pmLorne Bermudez II MDcompChillicothe VA Medical Center Main [address] [address] XRay Report Signed Patient: Brandon Diamond MR#: [id number] : 1960 Acct:[id number] Age/Sex: 64 / F ADM Date: 5 Loc: XD Room: Type: [facility] Attending Dr: Delia Mcgowan APRN Copies to: Delia Mcgowan APRN~ Ordering Provider: Delia Mcgowan APRN Date of Service: 02/20/25 XR/XR lumbar spine 2-3V*: Z98.1 - Arthrodesis status XR lumbar spine 2-3V* 02/20/2025 7:19 AM SIGNS AND SYMPTOMS: Low back pain PROTOCOLS: Frontal and lateral radiographs of the lumbar spine COMPARISON: 01/19/2025 FINDINGS: There is a slight levoconvex curvature. The bones are mineralized in anatomic alignment. There is no fracture or destructive lesion. There is posterior and intervertebral fusion at L4-5. No hardware complication or change in alignment. There is a remote compression deformity of the superior endplate of the L1 body. There is moderate severe disc height loss at L2 and L2-3. Degenerative changes are present in the sacroiliac joints. XR/XR lumbar spine 2-3V* IMPRESSION: There is posterior and intervertebral fusion at L4-5. No hardware complication or change in alignment. There is a remote compression deformity of the superior endplate of the L1 body. Degenerative changes are redemonstrated as above. Impression dictated by: Lorne Bermudez M.D. 02/20/2025 2:10 PM Dictation Location: [place] [address] Transcribed By: [facility] 02/20/25 1410 Dictated By: Lorne Bermudez II, MD 02/20/25 1409 Signed By: <Electronically signed by Lorne Bermudez II, MD in [place]> 02/20/25 1410 Author Mike Tijerina [facility] HamiltonAuthoredOctcarroll county memorial hospital 2024 9:53amReportDictated Date/TimeDictated ByStatusRadiology ReportOctober 2024 9:53amJosevidhi Tijerina Jr DOcompChillicothe [facility] Center Main [place] [address] [place] [address] XRay Report Signed Patient: Brandon Diamond MR#: [id number] : 1960 Acct:[id number] Age/Sex: 65 / F ADM Date: Loc: XD Room: Type: [facility] Attending Dr: Renard Monroe DO Copies to: Renard Monroe DO~ Ordering Provider: Renard Monroe DO Date of Service: 04/04/25 XR/XR lumbar spine 2-3V*: Z98.1 - Arthrodesis status LUMBAR SPINE - 2 views CLINICAL HISTORY: Follow-up lumbar surgery. COMPARISON: Lumbar spine 02/20/2025 FINDINGS: Posterior hardware fixation L4-L5 without hardware complication. Scoliosis is present. Stable compression deformity L1 vertebral body. Endplate and facet joint degenerative changes with moderate disc space narrowing at L1-L2 and L2-L3 similar to the prior study. XR/XR lumbar spine 2-3V* IMPRESSION: NO HARDWARE COMPLICATION. Impression dictated by: Mike Tijerina Jr., D.ORaulito 04/04/2025 9:57 AM Dictation Location: [place] [address] Transcribed By: PWS 04/04/2557 Dictated By: Mike Tijerina Jr, DO 04/04/2553 Signed By: <Electronically signed by Mike Tijerina Jr, DO in [place]> 04/04/25956 Vital Signs Vital Reading Result Reference Range Collection Date/Time Height 63.5 [in_i] January 31, 2025 10:02vtBbnyzl888.70 kgJuly 2024 10:38amBMI (Body Mass Index)51.4 kg/m2July 2024 10:78ouFrnfsx93.5 [in_i]February 21, 2025 9:03am Tycukw297.54 kgAugust 2024 9:03amBMI (Body Mass Index)50.5 kg/c5Buebnr 2024 9:38tgCphsts58 [in_i]February 26, 2025 8:49aoCbdrtb457.80 kgAugust 2024 8:19amBMI (Body Mass Index)49.1 kg/e7Dbixal 2024 8:42udCycgap24 [in_i]March 05, 2025 9:11bwOrnfqd698.90 kgSeptember 2024 9:47amHeart Rate82 /izb74-939Fozkuouxm 2024 9:47amRespiratory rate18 /glj23-29Ovtifkhig 2024 9:47amBP Plmlwfez620 mm[Hg]100-140Sept2024 9:47amBP Yziodzgwg08 mm[Hg]60-100September 2024 9:47amBMI (Body Mass Index)48.7 kg/n1Nltndobdz 2024 9:47amBody Vfkpumljfwg90.2 [degF]97.6-99.0October 2024 1:59pmHeart Rate98 /fqz96-172Sqxgiuy 2024 1:59pmRespiratory rate16 /xlf50-99Lsbvqbo 2024 1:59pmOxygen saturation by Pulse nomflwfr41 %95-100 April 04, 2025 1:59pmBP Rhgkabgl146 mm[Hg]100-140October 2024 1:59pmBP Jaroyjpno52 mm[Hg]60-100October 2024 1:29fvRdpwbr065.40 kgOctober 2024 8:17uaOmukmc91 [in_i]April 30, 2025 9:96upEwnqpw338.20 kgOctober 2024 9:32amHeart Rate77 /sna74-257MxtzjybApril 30, 2025 9:32amRespiratory rate18 /min 12-24October 2024 9:32amBP Bzasgaqg791 mm[Hg]100-140Oct2024 9:32amBP Aprtxaplf92 mm[Hg]60-100October 2024 9:32amBMI (Body Mass Index) 47.0 kg/p3Rtkwwag 2024 9:32am Advance Directives Advance Directive Response Recorded Date/ Time Advance Directives No June 11:29am Insurance Providers Guarantor Brandon Diamond Address [address] [facility] [address]Obtfgdk Info.Home Phone: Coverage Status Update:2024 Payer Group Member ID Coverage Type Subscriber Relationship to Subscriber Effective Date Expiration Date [employer] [place] Id: [id number] A Kuhn Id: [id number] [address] [facility] [address] Home Phone: Email: [email or web address] Encounter Location(s) Arrival/Admit Date Discharge/Departure Date Discharge/Departure Disposition Provider(s) Departed Physician/ Provider Office Visit -[facility] January 31, 2025 10:38am January 31, 2025 11:01am Discharged to home care or self care (routine discharge) Delia Mcgowan APRN Departed Clinical [facility] February 07, 2025 10:15am February 07, 2025 10:16am Discharged to home care or self care (routine discharge) Anthony Crockett MD Departed Clinical -[facility] February 20, 2025 7:11am February 20, 2025 7:12am Discharged to home care or self care (routine discharge) Delia Mcgowan APRN Departed Physician/ Provider Office Visit -[facility] February 21, 2025 8:52am February 21, 2025 9:27am Discharged to home care or self care (routine discharge) Anthony Crockett MD Departed Physician/ Provider Office Visit -[facility] February 26, 2025 8:15am February 26, 2025 8:49am Discharged to home care or self care (routine discharge) Delia Mcgowan APRN Departed Physician/ Provider Office Visit -[facility] March 05, 2025 9:42am March 05, 2025 10:21am Discharged to home care or self care (routine discharge) Shasha Gayle DNP Departed Clinical -[facility] [address] March 19, 2025 8:06am March 19, 2025 8:07am Discharged to home care or self care (routine discharge) Anthony Crockett MD Departed Clinical -[facility] April 04, 2025 7:29am April 04, 2025 7:30am Discharged to home care or self care (routine discharge) Renard Monroe , DO Registered Recurring -Infusion Therapy - O/P April 042024 1:47pm RUSTAM Mackey-CDeparted Physician/Provider Office Visit-[facility] BCOctober 2024 2:32pmOctober 2024 3:30pmDischarged to home care or self care (routine discharge)Lisa Garcia MDDeparted Physician/Provider Office Visit-[facility]October 2024 8:13amOctober 2024 8:39amDischarged to home care or self care (routine discharge)JEROD Griffithegistered Recurring-Physical Therapy [facility] April 29, 2025 8:00ROBBIE Paredeseparted Physician/Provider Office Visit-[facility]ctober 2024 9:21amOctober 2024 10:19amDischarged to home care or self care (routine discharge)Shasha Gayle DNP Recent Diagnosis Onset Date Admit Date History of lumbar fusion Unknown January 312024 10:38am Encounter for medication management Unknown February 21, 2025 8:52am Hx of fracture Unknown February 21 8:52am Low calcium levels Unknown February 21, 2025 8:52am Osteopenia Unknown February 21 8:52am Post-menopausal Unknown February 21 8:52am Lumbar spondylosis Unknown February 26, 2025 8:15am Abnormal weight gain Unknown March 052024 9:42am Arthritis of both hips Unknown March 05, 2025 9:42am Arthritis of lumbosacral spine Unknown S eptember 2024 9:42am BMI 45.0-49.9, adult Unknown March 052024 9:42am Chronic pain Unknown March 05 9:42am Chronic steroid use Unknown March 9:42am DDD (degenerative disc disease), cervical Unknow n March 05, 2025 9:42am Dietary surveillance and counseling Unknown March 05, 2025 9:42am Exercise counseling Unknown March 9:42am Fibromyalgia Unknown March 05 9:42am Hypertension Unknown March 05 9:42am Obesity, Class III, BMI 40-4 9.9 (morbid obesity) Unknown March 05, 2025 9:42am ILIANA on CPAP Unknown March 05 9:42am Osteoporosis Unknown March 05 9:42am Rheumatoid arthritis Unknown March 052024 9:42am Sjogren's disease Unknown March 05, 2025 9:42am Arthritis of lumbosacral spine Unknown O ctober 2024 2:32pm Cervical spine pain Unknown April 09, 2025 2:32pm Chronic pain Unknown April 09 2:32pm Myalgia Unknown April 09 2:32pm Trochanteric bursitis of right hip Unknown April 09, 2025 2:32pm Lumbar spondylosis Unknown April 10, 2025 8:13am Abnormal weight gain Unknown April 9:21am Arthritis of both hips Unknown April 042024 9:21am Arthritis of lumbosacral spine Unknown O ctober 2024 9:21am BMI 45.0-49.9, adult Unknown April 9:21am Chronic pain Unknown April 30 9:21am Chronic steroid use Unknown April 9:21am DDD (degenerative disc disease), cervical Unknow n April 30, 2025 9:21am Dietary surveillance and counseling Unknown April 30, 2025 9:21am Exercise counseling Unknown April 9:21am Fibromyalgia Unknown April 30 9:21am Hypertension Unknown April 30 9:21am Obesity, Class III, BMI 40-4 9.9 (morbid obesity) Unknown April 30, 2025 9:21am ILIANA on CPAP Unknown April 30 9:21am Osteoporosis Unknown April 30 9:21am Rheumatoid arthritis Unknown April 9:21am Sjogren's disease Unknown April 30, 2025 9:21am Assessments Diagnosis Onset Date Resolution Status Admit Date History of lumbar fusion acuteJuly 2024 10:38amEncounter for medication managementacuteAugust 2024 8:52amHx of fractureacuteAugust 2024 8:52amLow calcium levelsacute February 21, 2025 8:52amOsteopeniaacuteAugust 2024 8:52amPost-menopausal acuteAugust 2024 8:52amLumbar spondylosisacuteAugust 2024 8:15am Abnormal weight gainacuteSept2024 9:42amArthritis of both hipsacute March 05, 2025 9:42amArthritis of lumbosacral spineacuteSept2024 9:42amBMI 45.0-49.9, adultacuteSept2024 9:42amChronic painacute March 05, 2025 9:42amChronic steroid useacuteSept2024 9:42amDDD (degenerative disc disease), cervicalacuteSept2024 9:42amDietary surveillance and counselingacutept2024 9:42amExercise counseling acuteSept2024 9:42amFibromyalgiaacuteSeptember 2024 9:42am HypertensionacuteSeptember 2024 9:42amObesity, Class III, BMI 40-49.9 (morbid obesity)acuteSept2024 9:42amOSA on CPAPacuteSept2024 9:42amOsteoporosisacuteSept2024 9:42amRheumatoid arthritisacute March 05, 2025 9:42amSjogren's diseaseacuteSept2024 9:42am Arthritis of lumbosacral spineacuteOctober 2024 2:32pmCervical spine pain acuteOctober 2024 2:32pmChronic painacuteOctober 2024 2:32pmMyalgia acuteOctober 2024 2:32pmTrochanteric bursitis of right hipchronicOctober 2024 2:32pmLumbar spondylosisacuteOctober 2024 8:13amAbnormal weight gainacuteOctober 2024 9:21amArthritis of both hipsacuteOctober 2024 9:21amArthritis of lumbosacral spineacuteOctober 2024 9:21amBMI 45.0-49.9, adultacuteOctober 2024 9:21amChronic painacuteOctober 2024 9:21am Chronic steroid useacuteOctober 2024 9:21amDDD (degenerative disc disease), cervicalacuteOctober 2024 9:21amDietary surveillance and counselingacuteOctober 2024 9:21amExercise counselingacuteOctober 2024 9:21amFibromyalgiaacuteOctober 2024 9:21amHypertensionacuteOctober 2024 9:21amObesity, Class III, BMI 40-49.9 (morbid obesity)acuteOctober 2024 9:21amOSA on CPAPacuteOctober 2024 9:21amOsteoporosisacute April 30, 2025 9:21amRheumatoid arthritisacuteOctober 2024 9:21am Sjogren's diseaseacuteOctober 2024 9:21am Plan of Treatment Author Renard Hassantoddbethanie [facility] 20[facility] 8:49amIn summary this patient is a 64-year-old female status post L4-5 transforaminal lumbar interbody fusion January 17, 2025 secondary to having intractable lumbar back pain. This time) reviewed the x-rays from February 20 which demonstrate stable postoperative changes. I discussed 6-week follow-up for her 3-month follow-up at which point we will discontinue the back brace and start physical therapy. She did make mention that she has some discomfort towards the right-hand side but states that this back pain is definitely improved from what it was preoperatively. All questions were answered to the satisfaction as patient as well as her Carlo. Author Anthony Tripp [facility] 2024 3:55pmPatient's radicular pain symptoms have improved significantly since her lumbar surgery Tolerable following a recent right trochanteric bursa injection. We will continue to monitor. Patients primary complaint today is progressing lumbar pain above her recent lumbar fusion. . She has failed multiple conservative measures and would be a reasonable candidate to proceed with bilateral lumbar trigger point injections today in the office. Risks and benefits of procedure explained to patient; patient verbalizes understanding. Patient tolerated well. We will follow up with the patient in one month to re-assess, sooner if needed. Anatomy of spine discussed in detail with patient in regards to patients condition. Risk, benefits and alternatives of the procedure were explained to patient. Patient agrees to proceed. The skin area over the trigger points, were prepped and draped using standard sterile technique. Using 27g needle, 0.5% Bupivacaine with Triamcinolone injection into trigger points. Patient tolerated procedure well. No apparent complications. Above note written by RAPHAEL Gaona, Stamp Maker. Edited and approved by Dr. Anthony Tripp MD.? Author Rosalva [facility] 20[facility] 10:23amWt. Hx: Start: 08/23/24, 297 pounds Follow up: 10/04/24, 303.1 pounds Follow up: 11/15/24, 295.8 pounds Follow up: 01/07/25, 294.1 pounds Follow up: 03/05/25, 292.9 pounds (down 1.2 pounds since last OV on 11/15/24 and down 4.1 pounds since starting with our office on 08/23/24) AOM: compounded Semaglutide 1.2 mg once weekly from [facility]: 08/2024 Exercise counseling- Reinforced as a primary intervention to promote lean tissue mass/muscle preservation. Dietary surveillance and counseling: [Assignment Manager] Lead with lean protein sources and attempt 2-3 sections of plate method with each meal and snack. Continue to work on small sustainable changes to promote overall health F/u: [8 weeks] Medication considerations: increase compounded Semaglutide 1.8 mg once weekly from [facility] Treatment plan/changes: Fartun is a 65 year old female who presents today for weight management follow up. Since last visit patient is doing poor with lifestyle changes. Down 1.2 pounds since last OV on 11/15/24 and down 4.1 pounds since starting with our office on 08/23/24. Initial goals: 5% (282), 10%(267). Zepbound was approved but the cost was too much for her. She is taking compounded Semaglutide 1.2 mg once weekly from [facility]. Tolerating well with mild constipation but this is chronic for her and has not worsened since starting the compounded Semaglutide. Following with GI for this. Taking Miralax daily now. Constipation is very well controlled. Reports positive effect of weight loss, decreased appetite. Struggles with stress. Exercise consists of bike and weights 5 days per week at least 30 minutes at a time. Snacking at night is under very much control. Just had back surgery in January 2025. Does have issues with her neck as well, did have a cervical MRI done as well. Walking with walker and back brace. Not PT yet, until she is more steady. She is having a hard time with this and recovery. Overall, patient has had a rough past few weeks since back surgery. She is getting back on track though. She is down in weight and responding positively to compounded semaglutide 1.2 mg once weekly from [facility]. She would like more appetite control however so we will increase the compounded semaglutide to 1.8 mg once weekly from [facility]. Medication profile and possible side effects reviewed with patient today. Patient to take as prescribed. She will continue to follow with our registered dietitians. She will increase physical activity as she is allowed by her neurosurgeon. She will follow-up in the office with me in 8 weeks or sooner if needed. I discussed with patient that [facility] will not be able to continue to compound semaglutide by itself due to an FDA mandate.?? The cheapest branded option for a GLP-1 you would have would be between $349 per month for a small dose of Zepbound/terzepatide or $499 per month for an equivalent weight loss dosage.??The branded version of semaglutide is now also available at $499 a month. [facility] will be compounding the semaglutide with a small dose of niacinamide (a form of vitamin B3 ) and methylcobalamin (a form of vitamin B12) which can also be helpful in feeling more energetic and possibly aid in additional weight loss. ??You could continue compounded semaglutide by using that combination for weight loss if you feel comfortable not using an FDA approved product with these 3 things used together.?? Even though not FDA approved, the compounded semaglutide that they will be using will be coming from the same FDA monitored facility where it was previously obtained by [facility]. ??Compounded semaglutide in our practice has proven to be very effective for weight loss, helping to control appetite, cravings and allowing patients to eat much healthier overall.?? The results we saw with compounded semaglutide were similar to what we expected to see with the branded version of semaglutide. Risks and benefits of compounded Semaglutide treatment were discussed. Patient understands that this is not the exact formulation or dosage approved by the FDA for weight loss. We feel that we have thoroughly investigated with appropriate due diligence and using a well-established local sterile compounding pharmacy and are comfortable with their values and practices. They are also PCAB accredited and rated highly by [employer]. Patient will receive prefilled syringes provided by the compounding pharmacy to mitigate one of the most common contributor to complications due to incorrect dosing. After patient-provider discussion, we are both comfortable moving forward with this compounded version of the medication with the knowledge and research available to date. It was discussed with patient that our role is to help them to understand the underlying complex biology of obesity as a disease and offer tools and support for overall health goals and set realistic expectations for weight loss. Understands that the treatment plan is personalized to the best of knowledge and ability with priority to decreasing wt related comorbidities as well as increasing functional capacity and quality of life. Will work with pt to help overcome barriers with the understanding that treatment plan may foreign exchange position clerk time and tools, such as medications, do have limitations. Medications, as applicable, were discussed including up-to-date studies and effectiveness, risks and benefits, common side effects, MOA, etc. Regardless of medications, lifestyle change takes precedence. I highly recommended decreasing or eliminating caloric beverages especially sweetened beverages and alcohol. Pt should prioritize preplanning, shopping at the edge of the store, decreasing unhealthy food cues. I recommended packing snacks and meals when out of the home. No macronutrient is completely restricted. We discussed the addictive nature and unhealthy biological changes that occur with ultra processed food and how it may influence chronic disease. I highly recommended preference for whole foods/real foods and decrease added sugar, refined starches, and added fats. Lean unprocessed protein with each meal and each snack to help control appetite, decrease cravings and lessen muscle loss with weight loss advised. The patient will ideally try to get at least 5 or more servings of low carbohydrate veggies daily. Benefits of regular exercise including cardio and resistance training discussed and recommended, slowly increasing activity, as appropriate for the patient. Consider our labor/excavator for guidance. We offer individual and group visits from several different practitioners which was also recommended to help with long-term behavioral change and support. Recommend good sleep hygiene and the importance of adequate sleep. Circadian rhythm and the importance of mealtime. Stress reduction and controlling factors within reasonable control. The majority of today's visit was spent re-evaluating patient, counseling/educating patient on the options for the continual treatment of obesity and weight related health issues. See above treatment plan. See above treatment plan. She is scheduled with RD, keep appointment. Recommended at least 30 minutes of moderate physical activity most days of the week or 150 minutes weekly in addition to at least 2 days of strength training exercise. Blood pressure much more stable now on Lisinopril 5 mg once weekly. She will continue to follow with her pcp for this. She does have ILIANA with CPAP and follows with sleep lab routinely. Last sleep study was 2022. She is taking compounded Semaglutide to improve ILIANA and obesity. Follows with rheumatology on a routine basis. Follows with rheumatology on a routine basis. Follows with rheumatology and endocrinology on a routine basis. Follows with rheumatology and endocrinology on a routine basis. Follows with rheumatology and endocrinology on a routine basis. Follows with rheumatology and endocrinology on a routine basis. Follows with rheumatology and endocrinology on a routine basis. Follows with rheumatology and endocrinology on a routine basis. Stable at this time. Following with specialists on a routine basis. Author Delia Mcgowan [facility] 11:[id number] female who is s/p L4-5 lumbar fusion presenting today for 2-week postop follow- up. She is doing relatively well. Still having some back pain with left leg radiation, but overall much improved. Legs are somewhat weak still, for which she has been using a walker. She is receiving home health physical therapy once a week. I suggested that she inquires about outpatient therapy services for more intense treatment which the patient is agreeable. She has no bowel or bladder problems. I examined patient's posterior lumbar incision which appears unremarkable. Ly were removed today. There is no surrounding erythema or induration to the site. No drainage noted. She has no pain to palpation of the area. Patient is compliant with her LSO brace, I instructed her to continue wearing it for at least 3 months postop. I will obtain another set of x-rays in about a month, follow-up when imaging is complete. Author Fara Irby [facility] 20[facility] 9:30amDexa scan reviewed in detail with patient, demonstrating osteopenia. We discussed her lumbar spine reading may be falsely elevated due to her recent lumbar condition/surgery. Extensive discussion about current condition and treatment options available. Advised patient on appropriate calcium intake of 1200mg/day by a combination of diet and supplementation. Also advised patient on appropriate vitamin D intake of 600-800 IU/day through diet and supplementation. We discussed safe levels of sun exposure to increase vitamin D as well. We discussed the importance of weight bearing and balance exercise to maintain and improve bone health. Handouts provided on calcium intake and calcium rich foods. We discussed prescription treatment options in detail. Based on dexa scan, medical history, and patient lifestyle, we will continue with Prolia at this time. Risks and benefits were discussed in detail. Labs from 01/19/25 reviewed as low calcium. Patient will look at which exact calcium supplement she is taking and call in to discuss. May consider switching from calcium carbonate to calcium citrate, or may increase dose by 500, will make that determination based on what patient is already taking. We will plan to recheck calcium lab a month after making the dose change. Author Renard Monroe [facility] 2024 8:39amIn summary is patient is a 65-year-old female status post L4-5 transforaminal lumbar interbody fusion January 17, 2025 secondary to having tractable lumbar back pain. At this time we reviewed the x-rays from April 04. We discussed that radiographically everything appears to be stable with the postoperative changes. We discussed weaning herself out of her back brace and starting physical therapy. We discussed following up in 3 months time. For her 6-month appointment. All questions were answered to the satisfaction of the patient she is in agreement the above plan. Author Rosalva Massey [facility] 2024 10:14amWt. Hx: Start: 08/23/24, 297 pounds Follow up: 10/04/24, 303.1 pounds Follow up: 11/15/24, 295.8 pounds Follow up: 01/07/25, 294.1 pounds Follow up: 03/05/25, 292.9 pounds Follow up: 04/30/25, 282.6 pounds (down 10.3 pounds since last OV on 03/05/25 and down 14.4 pounds since starting with our office on 08/23/24) AOM: compounded Semaglutide 1.8 mg once weekly from [facility]: 08/2024 Exercise counseling- Reinforced as a primary intervention to promote lean tissue mass/muscle preservation. Dietary surveillance and counseling: [Assignment Manager] Lead with lean protein sources and attempt 2-3 sections of plate method with each meal and snack. Continue to work on small sustainable changes to promote overall health F/u: [8 weeks] Medication considerations: increase compounded Semaglutide 2.2 mg once weekly from [facility] Treatment plan/changes: Fartun is a 65 year old female who presents today for weight management follow up. Since last visit patient is doing fair with lifestyle changes. Down 10.3 pounds since last OV on 03/05/25 and down 14.4 pounds since starting with our office on 08/23/24. Initial goals: 5% (282), 10%(267). Has met her 5% weight loss goal. Zepbound was approved but the cost was too much for her. She is taking compounded Semaglutide 1.8 mg once weekly from [facility]. Tolerating well with mild constipation but this is chronic for her and has not worsened since starting the compounded Semaglutide. Following with GI for this. Taking Miralax daily now. Constipation is very well controlled. Reports positive effect of weight loss, decreased appetite. Struggles with stress. Exercise consists of bike and weights 5 days per week at least 30 minutes at a time. Has a new stress fracture to her foot, to her right foot. Still in PT for her back surgery she has had in January 2025. I discussed with patient that [facility] will not be able to continue to compound semaglutide by itself due to an FDA mandate.?? The cheapest branded option for a GLP-1 you would have would be between $349 per month for a small dose of Zepbound/terzepatide or $499 per month for an equivalent weight loss dosage.??The branded version of semaglutide is now also available at $499 a month. [facility] will be compounding the semaglutide with a small dose of niacinamide (a form of vitamin B3 ) and methylcobalamin (a form of vitamin B12) which can also be helpful in feeling more energetic and possibly aid in additional weight loss. ??You could continue compounded semaglutide by using that combination for weight loss if you feel comfortable not using an FDA approved product with these 3 things used together.?? Even though not FDA approved, the compounded semaglutide that they will be using will be coming from the same FDA monitored facility where it was previously obtained by [facility]. ??Compounded semaglutide in our practice has proven to be very effective for weight loss, helping to control appetite, cravings and allowing patients to eat much healthier overall.?? The results we saw with compounded semaglutide were similar to what we expected to see with the branded version of semaglutide. Risks and benefits of compounded Semaglutide treatment were discussed. Patient understands that this is not the exact formulation or dosage approved by the FDA for weight loss. We feel that we have thoroughly investigated with appropriate due diligence and using a well-established local sterile compounding pharmacy and are comfortable with their values and practices. They are also PCAB accredited and rated highly by [employer]. Patient will receive prefilled syringes provided by the compounding pharmacy to mitigate one of the most common contributor to complications due to incorrect dosing. After patient-provider discussion, we are both comfortable moving forward with this compounded version of the medication with the knowledge and research available to date. It was discussed with patient that our role is to help them to understand the underlying complex biology of obesity as a disease and offer tools and support for overall health goals and set realistic expectations for weight loss. Understands that the treatment plan is personalized to the best of knowledge and ability with priority to decreasing wt related comorbidities as well as increasing functional capacity and quality of life. Will work with pt to help overcome barriers with the understanding that treatment plan may foreign exchange position clerk time and tools, such as medications, do have limitations. Medications, as applicable, were discussed including up-to-date studies and effectiveness, risks and benefits, common side effects, MOA, etc. Regardless of medications, lifestyle change takes precedence. I highly recommended decreasing or eliminating caloric beverages especially sweetened beverages and alcohol. Pt should prioritize preplanning, shopping at the edge of the store, decreasing unhealthy food cues. I recommended packing snacks and meals when out of the home. No macronutrient is completely restricted. We discussed the addictive nature and unhealthy biological changes that occur with ultra processed food and how it may influence chronic disease. I highly recommended preference for whole foods/real foods and decrease added sugar, refined starches, and added fats. Lean unprocessed protein with each meal and each snack to help control appetite, decrease cravings and lessen muscle loss with weight loss advised. The patient will ideally try to get at least 5 or more servings of low carbohydrate veggies daily. Benefits of regular exercise including cardio and resistance training discussed and recommended, slowly increasing activity, as appropriate for the patient. Consider our labor/excavator for guidance. We offer individual and group visits from several different practitioners which was also recommended to help with long-term behavioral change and support. Recommend good sleep hygiene and the importance of adequate sleep. Circadian rhythm and the importance of mealtime. Stress reduction and controlling factors within reasonable control. The majority of today's visit was spent re-evaluating patient, counseling/educating patient on the options for the continual treatment of obesity and weight related health issues. See above treatment plan. See above treatment plan. She is scheduled with RD, keep appointment. Recommended at least 30 minutes of moderate physical activity most days of the week or 150 minutes weekly in addition to at least 2 days of strength training exercise. Blood pressure much more stable now on Lisinopril 5 mg once weekly. She will continue to follow with her pcp for this. She does have ILIANA with CPAP and follows with sleep lab routinely. Last sleep study was 2022. She is taking compounded Semaglutide to improve ILIANA and obesity. Follows with rheumatology on a routine basis. Follows with rheumatology on a routine basis. Follows with rheumatology and endocrinology on a routine basis. Follows with rheumatology and endocrinology on a routine basis. Follows with rheumatology and endocrinology on a routine basis. Follows with rheumatology and endocrinology on a routine basis. Follows with rheumatology and endocrinology on a routine basis. Follows with rheumatology and endocrinology on a routine basis. Stable at this time. Following with specialists on a routine basis. Future Tests Future scheduled test information is unavailable Pending Tests Test Name Ordered Date Scheduled Date XR lumbar spine 2-3V* April 10, 2025 8:36am Future Visits Future appointment information is unavailable Future Procedures Future procedure information is unavailable Future Medications Future medication information is unavailable Patient Instructions Patient instructions are unavailable
--- OUTSIDE RECORDS SUMMARY | 2025-05-01 08:56 | XMS_ITS | Encounter Summary ---
Author Organization [facility] Address [address] [place] [address] Care Team Providers Care Head Of Data Name Role Phone Keyshawn Schumacher MD Primary Care Provider Marisol Benoit TANK ERECTOR Unavailable Estefany Serrano TANK ERECTOR Unavailable [phone] Encounter Details DateTypeDepartmentCare Team (Latest Contact Info)Smisbfnzoka39/27/2025Travel Social History Tobacco UseTypesPacks/DayYears UsedDateSmoking Tobacco: NeverSmokeless Tobacco: NeverAlcohol UseStandard Drinks/WeekCommentsNever0 (1 standard drink = 0.6 oz pure alcohol)caffeine intake: 2-3 cups per day of [id number] Health Literacy AnswerDate RecordedHow often do you [...] relatives?Once a week07/19/2024How often do you attend hinduism or hinduism services?Never07/19/2024Do you belong to any clubs or organizations such as hinduism groups, unions, fraternal or athletic groups, or school groups?No 07/19/2024How often do you attend meetings of the clubs or organizations you belong to?Never07/19/2024re you , , , , never , or living with a partner?Vbbcoul1307/19/2024UDIT-CAnswerDate RecordedQ1: How often do you have a [...] hard at all07/19/2024PHQ-2AnswerDate Recorded Patient Health Questionnaire-2 [id number] [place] of Occupational Health - Occupational Stress QuestionnaireAnswerDate [...] were you homeless or living in a mcfp (including now)?No07/19/2024CommentsNoSex and Gender InformationValueDate RecordedSex Assigned at BirthNot on fileLegal SexFemale 09/15/2022 11:07 PM EDTGender IdentityNot on fileSexual OrientationNot on file documented as of this encounter Plan of Treatment DateTypeDepartmentCare Team (Latest Contact Info)Synzyrpcsdi98/17/2025 8:00 AM ESTOffice Visit [facility] [address] [place] [phone] Estefany Serrano NP [address] [place] [phone] documented as of this encounter Goals GoalPatient Goal TypeAssociated ProblemsRecent ProgressPatient-Stated?Author Help patient manage antidepressant medication Care PlanPatient on antidepressant monitoring Marisol Fraire, TANK ERECTOR Baseline PHQ-9 Care PlanBaseline PHQ-9Marisol Martell NPdocumented as of this encounter Visit Diagnoses Not on filedocumented in this encounter Additional Health Concerns Active ProblemsNoted DateDiagnosed DatePatient on antidepressant monitoring plan 02/23/2023aseline PHQ-9002/23/2023ssessmentNoted TimePHQ-9 Depression Total Score: 7009/06/2023 9:05 AM ESTdocumented as of this encounter Care Teams Team MemberRelationshipSpecialtyStart DateEnd Date Keyshawn Schumacher MD [address] [place] [address] PCP - GeneralFamily Medicine11/25/22 Marisol Benoit, GUERLINE [address] [address] PCP - [place]02/01/25 Estefany Serrano NP [address] [place] [address] Nurse PractitionerFamily Medicine03/14/25documented as of this encounter
--- OUTSIDE RECORDS SUMMARY | 2025-05-01 08:56 | XMS_ITS | Encounter Summary ---
Author Organization [facility] Address [address] [facility] [place] [address] Care Team Providers Care Account Developer Name Role Phone Keyshawn Schumacher MD Primary Care Provider [phone] Marisol Benoit AIRCRAFT ELECTRICIAN Unavailable Estefany Serrano AIRCRAFT ELECTRICIAN Unavailable [phone] Encounter Details DateTypeDepartmentCare Team (Latest Contact Info)Zdkxsgblyer67/27/2025amboo flowsheet [facility] [address] [facility] [address] [place] [address] Wong Graves DPM [address] [facility] [address] [place] [address] Social History Tobacco UseTypesPacks/DayYears UsedDateSmoking Tobacco: NeverSmokeless Tobacco: NeverAlcohol UseStandard Drinks/WeekCommentsNever0 (1 standard drink = 0.6 oz pure alcohol)caffeine intake: 2-3 cups per day of [id number] Health Literacy AnswerDate RecordedHow often do you [...] relatives?Once a week07/19/2024How often do you attend caodaism or congregational services?Never07/19/2024Do you belong to any clubs or organizations such as caodaism groups, unions, fraBest Five Reviewed or athletic groups, or school groups?No 07/19/2024How often do you attend meetings of the clubs or organizations you belong to?Never07/19/2024re you , , , , never , or living with a partner?Wlvivoh4807/19/2024UDIT-CAnswerDate RecordedQ1: How often do you have a [...] hard at all07/19/2024PHQ-2AnswerDate Recorded Patient Health Questionnaire-2 Eetbo225Finf[facility] [place] of Occupational Health - Occupational Stress QuestionnaireAnswerDate [...] steady place to sleep or slept in [facility] (including now)?No 03/21/2023Housing Stability Vital SignAnswerDate RecordedIn the last 12 months, was there a time when you were not able to pay the mortgage or rent on time?No 07/19/2024In the past 12 months, how many times have you moved where you were living?t any time in the past 12 months, were you homeless or living in a alf (including now)?No07/19/2024CommentsNoSex and Gender InformationValueDate RecordedSex Assigned at BirthNot on fileLegal SexFemale 09/15/2022 11:07 PM EDTGender IdentityNot on fileSexual OrientationNot on file documented as of this encounter Plan of Treatment DateTypeDepartmentCare Team (Latest Contact Info)Yhuunzodzgp69/17/2025 8:00 AM ESTOffice Visit [facility] [address] [place] [address] Estefany Serrano, AIRCRAFT ELECTRICIAN [address] [place] [address] documented as of this encounter Goals GoalPatient Goal TypeAssociated ProblemsRecent ProgressPatient-Stated?Author Help patient manage antidepressant medication Care PlanPatient on antidepressant monitoring planMarisol Martell NP Baseline PHQ-9 Care PlanBaseline PHQ-9Marisol Martell NPdocumented as of this encounter Visit Diagnoses Not on filedocumented in this encounter Additional Health Concerns Active ProblemsNoted DateDiagnosed DatePatient on antidepressant monitoring plan 02/23/2023aseline PHQ-9002/23/2023ssessmentNoted TimePHQ-9 Depression Total Score: 7009/06/2023 9:05 AM ESTdocumented as of this encounter Care Teams Team MemberRelationshipSpecialtyStart DateEnd Date Keyshawn Schumacher MD [address] [place] [address] PCP - GeneralFamily Medicine11/25/22 Marisol Benoit, GUERLINE [address] [place] [address] PCP - [place]02/01/25 Estefany Serrano NP [address] [place] [address] Nurse PractitionerFamily Medicine03/14/25documented as of this encounter
--- OUTSIDE RECORDS SUMMARY | 2025-05-01 08:56 | XMS_ITS | Encounter Summary ---
Author Organization [facility] Address [address] [place] [address] Care Team Providers Care Box Loader Name Role Phone Keyshawn Schumacher MD Primary Care Provider [phone] Marisol Benoit FOLDER SEAMER AUTOMATIC Unavailable Estefany Serrano FOLDER SEAMER AUTOMATIC Unavailable [phone] Encounter Details DateTypeDepartmentCare Team (Latest Contact Info)Vthpplqoejh79/26/2025Travel Social History Tobacco UseTypesPacks/DayYears UsedDateSmoking Tobacco: NeverSmokeless Tobacco: NeverAlcohol UseStandard Drinks/WeekCommentsNever0 (1 standard drink = 0.6 oz pure alcohol)caffeine intake: 2-3 cups per day of [id number] Health Literacy AnswerDate RecordedHow often do you [...] relatives?Once a week07/19/2024How often do you attend nondenominational or restorationism services?Never07/19/2024Do you belong to any clubs or organizations such as nondenominational groups, unions, fraternal or athletic groups, or school groups?No 07/19/2024How often do you attend meetings of the clubs or organizations you belong to?Never07/19/2024re you , , , , never , or living with a partner?Mwcvbqo1307/19/2024UDIT-CAnswerDate RecordedQ1: How often do you have a [...] hard at all07/19/2024PHQ-2AnswerDate Recorded Patient Health Questionnaire-2 Kcxuz705Finintermountain medical center [place] of Occupational Health - Occupational Stress QuestionnaireAnswerDate [...] were you homeless or living in a snf (including now)?No07/19/2024CommentsNoSex and Gender InformationValueDate RecordedSex Assigned at BirthNot on fileLegal SexFemale 09/15/2022 11:07 PM EDTGender IdentityNot on fileSexual OrientationNot on file documented as of this encounter Plan of Treatment DateTypeDepartmentCare Team (Latest Contact Info)Aocgbscdudv02/17/2025 8:00 AM ESTOffice Visit [facility] [address] [place] [address] Estefany Serrano NP [address] [place] [address] documented as of this encounter Goals GoalPatient Goal TypeAssociated ProblemsRecent ProgressPatient-Stated?Author Help patient manage antidepressant medication Care PlanPatient on antidepressant monitoring Marisol Fraire, FOLDER SEAMER AUTOMATIC Baseline PHQ-9 Care PlanBaseline PHQ-9Marisol Martell NPdocumented as of this encounter Visit Diagnoses Not on filedocumented in this encounter Additional Health Concerns Active ProblemsNoted DateDiagnosed DatePatient on antidepressant monitoring plan 02/23/2023aseline PHQ-9002/23/2023ssessmentNoted TimePHQ-9 Depression Total Score: 7009/06/2023 9:05 AM ESTdocumented as of this encounter Care Teams Team MemberRelationshipSpecialtyStart DateEnd Date Keyshawn Schumacher MD [address] [place] [address] PCP - GeneralFamily Medicine11/25/22 Marisol Benoit, GUERLINE [address] [address] PCP - [place]02/01/25 Estefany Serrano NP [address] [place] [address] Nurse PractitionerFamily Medicine03/14/25documented as of this encounter
--- OUTSIDE RECORDS SUMMARY | 2025-05-01 08:56 | XMS_ITS | Clinical Summary ---
Author Organization [facility] Address [address] [place] [address] Care Team Providers Care Senior Health Physics Technician Name Role Phone Keyshawn Schumacher MD Primary Care Provider [phone] Marisol Benoit NP Unavailable Estefany Serrano INSTITUTION LIBRARIAN Unavailable [phone] Allergies No known active allergies Medications MedicationSigDispense QuantityRefillsLast FilledStart DateEnd DateStatus omega-3 (FISH OIL) 300 MG capsule Active folic acid (Folvite) 1 MG tablet Take 1 mg by mouth DailyActive methotrexate 2.5 MG tablet Take 150 mg by mouth 1 (one) time per week.Active riTUXimab (Rituxan) 100 MG/10ML chemo injection Infuse into a venous catheter every 6 (six) monthsActive Calcium Carbonate-Vit D-Min (CALCIUM 1200 PO) Take 1,200 mg by mouth DailyActive cholecalciferol (Vitamin D-3) 125 MCG (5000 UT) capsule Take 5,000 Units by mouth DailyActive doxepin (SINEquan) 10 MG capsule Take 20 mg by mouth at bedtimeActive meloxicam (Mobic) 15 MG tablet 03/02/2023ctive acetaminophen (Tylenol) 500 MG tablet Take 500 mg by mouth every 6 (six) hours if needed for mild painActive denosumab (Prolia) 60 MG/ML solution prefilled syringe Inject 60 mg under the skin every 6 (six) monthsActive hydroxychloroquine (Plaquenil) 200 MG tablet Take 1 tablet by mouth in the morning and 1 tablet before bedtime.Active ertapenem (INVanz) 1 g injection 06/12/2024ctive Prevnar 20 0.5 ML vaccine 03/13/2024ctive traMADol (Ultram) 50 MG tablet 04/30/2024ctive lisinopril 5 MG tablet Indications:Primary hypertensionTake 1 tablet (5 mg) by mouth Daily 30 tablet //6Active Additional Information Patient taking differently:5 mg Oral Daily,(No times of day reported), Reported on 04/29/2025 DULoxetine (Cymbalta) [address] capsule Indications:Depression with anxietyTake 1 capsule (60 mg) by mouth Daily Do not crush or chew. 90 capsule /5Active Additional Information Patient taking differently:60 mg Oral Daily,(No times of day reported), Do not crush or chew., Reported on 04/29/2025 hydrocortisone (Cortef) 10 MG tablet Indications:Sjogren's syndrome, with unspecified organ involvement (HCC)TAKE 2 TABLETS BY MOUTH EVERY MORNING AT BREAKFAST AND TAKE ONE TABLET BY MOUTH EVERY EVENING AT DINNER 180 tablet 5Active cyclobenzaprine (Flexeril) 10 MG tablet Indications:Right hip painTake 1 tablet (10 mg) by mouth 3 (three) times a day as needed for muscle spasms 30 tablet 5Active pregabalin (Lyrica) 150 MG capsule Indications:FibromyalgiaTake 1 capsule (150 mg) by mouth in the morning and 1 capsule (150 mg) before bedtime. 60 capsule 5Active atorvastatin (Lipitor) 20 MG tablet Indications:Type 2 diabetes mellitus without complication, without long-term current use of insulin (HCC),Mixed hyperlipidemiaTake 1 tablet (20 mg) by mouth Daily 90 tablet /5Active Additional Information Patient taking differently:20 mg Oral Daily,(No times of day reported), Reported on 04/29/2025 tiZANidine (Zanaflex) 4 MG tablet Indications:Fibromyalgia,Lumbar back painTake 1 tablet (4 mg) by mouth every 8 (eight) hours if needed for muscle spasms 40 tablet 5Active SEMAGLUTIDE SC Inject 1.2 mg under the skin 1 (one) time per week Prescribed by [facility] Massey weight management. 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, subsequent encounterTake 1 tablet (15 mg) by mouth Daily 30 tablet 5Active Active Problems ProblemNoted DateDiagnosed DateEssential /27/2021jogren's gbxturdw64/12/2021epression with qmzokar8307/15/20200216Ghxibenotsqq29/13/2018 Resolved Problems ProblemNoted DateDiagnosed DateResolved NsdxKfmpqbyusj96/19/202308/MI 35.0-35.9,adult/Verruca kefjusgrv42 Degenerative disc disease, vwmsmb03Excessive daytime ojxnvlzmal84/01/202208/rimary osteoarthritis of left knee05/04/2021 03/21/2023rimary localized osteoarthrosis of ankle and foot/ Idiopathic peripheral dvsibwbkfi47/16/202108/rachnoid cyst11/13/2018 03/01/2023ftercare following surgery of the musculoskeletal gtwmig5803/01/2018 03/01/2023Osteoarthritis of left thumb Overview (02/19/2023): Added automatically from request for surgery [id number] On methotrexate nrlesmg38Osteoporosis Encounters DateTypeDepartmentCare JlmuBuszhxxqeot32/28/2025bstract [facility] [address] [place] [address] Estefany Serrano, GUERLINE 04/29/2025 3:15 PM EDTOffice Visit [facility] [address] [place] [address] Wong Graves, MERRILL Stress fracture of right foot with routine healing, subsequent encounter (Primary Dx); Right foot pain; 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, subsequent serudbptn51/27/2025amb flowsheet [facility] [address] [place] [address] Wong Graves DPM 04/29/20253201Sqhant76/26/5578Zllbkv02/20/3075Wchujj94/10/2025 11:15 AM EDTOffice Visit [facility] [place] [facility] [address] [place] [address] Wong Graves DPM Stress fracture of right foot, initial encounter (Primary Dx); Right foot pain; Osteoarthritis of midfoot, right04/12/2025[facility] [place] [facility] [address] [place] [address] Wong Graves DPM 04/12/20253550Mwtvsy80/09/2528Upccwh35/08/2025bstract [facility] [address] [place] [address] Estefany Serrano NP 04/09/2025bstract [facility] Medicine [address] [place] [address] Estefany Serrano NP 04/05/20252370Nuhtrg57/17/2025 8:00 AM EDTFollow-Up [facility] [address] [place] [address] Estefany Serrano NP Fibromyalgia (Primary Dx); Lumbar back pain03/20/20250207Obikrd77/10/6534Kdyatp62/03/2025Refill [facility] [address] [place] [address] Keyshawn Schumacher MD Type 2 diabetes mellitus without complication, without long-term current use of insulin (HCC); Mixed ttsztrgurvifrk14/02/2025bstract [facility] [address] [place] [address] Estefany Serrano, GUERLINE 03/04/2025bstract [facility] [address] [place] [address] Estefany Serrano NP 03/03/2025Refill [facility] [address] [place] [address] Estefany Serrano, GUERLINE Rguujqnfvtpu15/22/2025[facility] [address] [place] [address] Rajan Kumar MA 02/21/2025bstract [facility] [address] [place] [address] Estefany Serrano NP 02/21/2025bstract [facility] [address] [place] [address] Estefany Serrano NP 02/18/2025Orders Only [facility] [address] [place] [address] Estefany Serrano NP Right hip pain (Primary Dx)02/15/2025Refill [facility] [address] [place] [address] Anita Limon MD Sjogren's syndrome, with unspecified organ involvement (HCC)02/14/2025[facility] [address] [place] [address] Rajan Kumar MA 02/13/2025[facility] [address] [place] [address] Rajan Kumar MA 02/13/2025Patient Outreach [facility] [address] [place] [address] Rajan Kumar MA 02/04/2025Patient Outreach [facility] [address] [place] [address] Rajan Kumar MA 01/31/2025bstract [facility] [address] [place] [address] Estefany Serrano NP 01/30/2025Patient Outreach [facility] [address] [place] [address] Rajan Kumar MA from Last 3 Months Immunizations ImmunizationAdministration DatesNext DueInfluenza, Injectable, MDCK, preservative free03/13/2024Influenza, injectable, MDCK, preservative free, mbikqhfspowe42/08/2022Influenza, injectable, quadrivalent, preservative free 04/06/2023,04/16/2020,03/03/2020,04/13/2019Influenza, seasonal, injectable 04/02/2021Moderna SARS-CoV-2 Booster Eegkdjqshrd64/09/2022Moderna SARS-CoV-2 Tackjlbmktq88/10/2022Pneumococcal Conjugate PCV 1301Pneumococcal Conjugate PCV 4Pneumococcal Polysaccharide AIEY7622RSV, recombinant, protein subunit RSVpreF, adjuvant reconstitu, 120mcg/0.5mL, PF (Arexvy)03/13/2024,04/06/20230255ECFY-REC-4 (COVID-19) vaccine, mRNA, spike protein, LNP, PF, 50 mcg/0.5 mL04/06/20239420MMUQ-LnC-1, Zdaerdazfli10/04/2023Td (adult), 5 Lf tetanus toxoid, preservative free, boiwkbgb17/09/1623Qjck18/09/2021Zoster, Vmvfoljjmnx79/04/2021,2021 Family History Medical HistoryRelationNameCommentsArthritisFatherLamarrDiabetesFatherLamarr Hearing lossFatherLamarrHeart attackFatherLamarrdied at age 64Heart disease FatherLamarrHyperlipidemiaFatherLamarrHypertensionFatherLamarrArthritisMother MarthaCancerMotherMarthaLung cancerMotherMarthadied at age 72ArthritisSister 1 TrudyDiabetesSister 1TrudycovidSister 1TrudyDeceased 63ArthritisSister 2Teresa ObesitySister 2TeresaArthritisSister 3MaryRelationNameStatusCommentsBrother 1 VfzmNyvpx3778Itoftqk 3pdhuzQuwdk7590VlwqtlXejhjxKrpugifeAueiegMrfbbpGxswdphx Sister 1TrudyDeceasedSister 7KynyrtOmepv2913Hcisxt 6MpujHvgon0387 Social History Tobacco UseTypesPacks/DayYears UsedDateSmoking Tobacco: NeverSmokeless Tobacco: Never Tobacco Cessation:Counseling Given: Not Answered Alcohol UseStandard Drinks/WeekCommentsNever0 (1 standard drink = 0.6 oz pure alcohol)caffeine intake: 2-3 cups per day of zaycakI1710 Health LiteracyAnswer Date RecordedHow often do you need to have [...] relatives?Once a week07/19/2024How often do you attend congregational or restorationist services?Never07/19/2024Do you belong to any clubs or organizations such as congregational groups, unions, fraternal or athletic groups, or school groups?No 07/19/2024How often do you attend meetings of the clubs or organizations you belong to?Never07/19/2024re you , , , , never , or living with a partner?Hmzkucq6907/19/2024UDIT-CAnswerDate RecordedQ1: How often do you have a [...] hard at all07/19/2024PHQ-2AnswerDate Recorded Patient Health Questionnaire-2 Yzhmt693[facility] [place] of Occupational Health - Occupational Stress QuestionnaireAnswerDate [...] steady place to sleep or slept in [place] (including now)?No 03/21/2023Housing Stability Vital SignAnswerDate RecordedIn [...] EDTGender IdentityNot on fileSexual OrientationNot on file Last Filed Vital Signs Vital SignReadingTime TakenCommentsBlood Kiqvyuwq397/8803/20/2025 8:05 AM EDT Ltvpb6815 8:05 AM ZGBGkzwrlplolx99.4 ??C (97.6 ??F)03/20/2025 8:05 AM EDTRespiratory Dplt654101/15/2025 9:16 AM EDTOxygen Euhsbtjgrr80%03/20/2025 8:05 AM EDTInhaled Oxygen Concentration--Zfnzaf920 kg (292 lb)03/20/2025 8:05 AM EDT Zvoixs166 cm (5' 3 )03/20/2025 8:05 AM EDTBody Mass Index51.7303/20/2025 8:05 AM EDT Plan of Treatment DateTypeDepartmentCare Team (Latest Contact Info)Qwdgxudzzxa27/17/2025 8:00 AM ESTOffice Visit [facility] [address] [place] [address] Estefany Serrano, INSTITUTION LIBRARIAN [address] [place] [address] Health MaintenanceDue DateLast DoneCommentsCT Bmcutrvipwmd1960FIT-DNA 1960FIT1960FOBT02/28/19609961Tyczphmkikxdz1960MMR Vaccines (1 of 1 - Standard series)1Pap Smear02/27/1981DTaP/Tdap/Td Vaccines (2 - Td or Tdap)/03/2021, 08/12/2020OVID-19 Vaccine ( season) /10/2022, 10/11/2021, 10/10/2021, Additional history existsDiabetes: Urine Protein Tceczgihb44/07/2023, 4Diabetes: Hemoglobin A1C 507/, 09/17/2024, 04/24/2024, Additional history existsCervical Cancer Zzqfdndys62/19/2026HPV/Wtwuvn06/Medicare Annual Wellness (AWV)603/, 09/06/2023, 09/09/2022, Additional history exists Diabetes: Retinopathy Skefeqjxf95/27/709288/, 11/07/2024, 05/02/2024, Additional history quvjsuOdylqaema70/02/202704/08/2024, 04/05/2023, 08/18/2020, Additional history gvqhkwGbglsofgibs15Colorectal Cancer Ehvrbmqjb20/11/2030Pneumococcal Vaccine: 65+ BznjuMsxmrstze37/10/2024, 08/12/2020, 07/18/2018Influenza KnnneexZjcpjgpoc26/03/2025, 03/13/2024, 04/06/2023, Additional history existsHIB VaccinesAged OutNo longer eligible based on patient's age to complete this topicHPV VaccinesAged OutNo longer eligible based on patient's age to complete this topicHepatitis A VaccinesAged OutNo longer eligible based on patient's age to complete this topicHepatitis B VaccinesAged OutNo longer eligible based on patient's age to complete this topic IPV VaccinesAged OutNo longer eligible based on patient's age to complete this topicMeningococcal B VaccineAged OutNo longer eligible based on patient's age to complete this topicMeningococcal VaccineAged OutNo longer eligible based on patient's age to complete this topicRotavirus VaccinesAged OutNo longer eligible based on patient's age to complete this topic Goals GoalPatient Goal TypeAssociated ProblemsRecent ProgressPatient-Stated?Author Help patient manage antidepressant medication Care PlanPatient on antidepressant monitoring Marisol Fraire NP Baseline PHQ-9 Care PlanBaseline PHQ-9Marisol Martell NP Procedures Procedure NamePriorityDate/TimeAssociated DiagnosisCommentsXR FOOT 3+ VIEWS VFCHGOdyjujc93/27/2025 4:09 PM EDT Stress fracture of right foot with routine healing, subsequent encounter Right foot pain XR FOOT 3+ VIEWS PTXIULlhjtsx62/10/2025 12:19 PM EDT Right foot pain POCT GLYCOSYLATED HEMOGLOBIN (HGB A1C)Ihkyztg1701/15/2025 9:31 AM EDT Type 2 diabetes mellitus with other specified complication, with long-term current use of insulin (HCC) DIABETIC RETINOPATHY SCREENING - OU - BOTH IDEFHvovikk27/27/2025 3:37 PM EDTBI MAMMOGRAM SCREENING TOMOSYNTHESIS QSELNQSORKqpvqto52/02/2025 9:47 AM EDT Encounter for screening mammogram for breast cancer MICROALBUMIN / CREATININE URINE EDKYGZqkldlo15/01/2024 2:00 PM EDTQ - THINPREP(R) TIS AND HPV MRNA E6/E7 RFL HPV 16,18/30Dyopdas94/19/2021 GPDEUHXRBXBOvjqkyh15/11/2020 12:00 PM EDT from Last 3 Months or Most Recently Relevant to Health Maintenance Results * XR foot 3+ views right (04/29/2025 4:09 PM EDT) Only the most recent of2 resultswithin the time period is included. Anatomical RegionLateralityModalityLower Extremities, FootRightRadiographic ImagingSpecimen (Source)Anatomical Location / LateralityCollection Method / VolumeCollection TimeReceived Time Narrative 04/29/2025 4:09 PM EDT Imaging [...] for age of patient. Authorizing ProviderResult TypeResult Denice Graves DPMIMG XR PROCEDURESFinal Result * POCT glycosylated hemoglobin (Hb A1C) docked device (01/15/2025 9:31 AM EDT) ComponentValueRef RangeTest MethodAnalysis TimePerformed AtPathologist SignatureHemoglobin A1C5.2Specimen (Source)Anatomical Location / Laterality Collection Method / VolumeCollection TimeReceived TimeBloodVenous blood specimen / Nacvepo2701/15/2025 9:31 AM EDT Narrative Authorizing ProviderResult TypeResult Jerry Serrano NPPOINT OF CARE TEST ENTER/EDIT ORDERABLESFinal Result * Diabetic Retinopathy Screening - OU - Both Eyes (11/27/2024 3:37 PM EDT) Anatomical RegionLateralityModalityHeadOther Narrative Authorizing ProviderResult TypeResult Heber Schumacher MDNOR[facility] KANS[facility] PHOTOGRAP[facility] Final Result * Bilateral screening mammogram with tomosynthesis (10/03/2024 9:47 AM EDT) Anatomical RegionLateralityModalityBreastBilateralMammographySpecimen (Source) Anatomical Location / LateralityCollection Method / VolumeCollection Time Received Time10/03/2024 9:47 AM EDT Impressions 10/03/2024 9:50 AM EDT NO MAMMOGRAPHIC EVIDENCE OF MALIGNANCY. ? ROUTINE FOLLOW-UP IS RECOMMENDED IN ONE YEAR. ? RESULT CODE: 1 ? Negative ? DENSITY CODE: 1 (<25% glandular) The breasts are almost entirely fatty. ? FOLLOW UP: 1YR ? The false-negative rate of mammography is approximately 10-percent. ? Management of a palpable abnormality must be based on clinical grounds. ? Patient was entered into a reminder system with a target due date for the next mammogram. ? Impression dictated by: Mike Tijerina Jr., D.O.10/03/2024 9:48 AM ? Dictation Location: [facility] ? Dictated By: ?Mike Tijerina Jr DO ? 10/03/24 0947 ? Signed By: <Electronically signed by Mike Tijerina Jr DO in OV> ?10/03/24 0948 Narrative 10/03/2024 9:50 AM EDT [facility] ?[address] ?[place] [address] ?? [phone] ? Mammography Report ? Signed ? Patient: Dara,Jullie A ?MR#: [id number] ?? 6 ? : 1960 ?Acct:[id number] ? Age/Sex: 64 / F ?Adm Date: 10/03/24 ? Loc: [place] ?Room: ?Type: REG CLI ?? Attending Dr: MARIANA Fritz APRN ? Ordering Provider: Estefany Serrano APRN, NPC ? Date of Service: 10/03/24 ? Procedure(s): MM screening mammo BI w/CAD ?? Accession Number(s): ([id number]) MM/MM screening mammo BI w/CAD: Annual exam ? Copies to: Keyshawn Schumacher MD ?? Estefany Serrano APRN, NPC ? CLINICAL DATA: ??Screening for malignancy. ? SCREENING MAMMOGRAM - FULL FIELD DIGITAL WITH TOMOSYNTHESIS AND CAD ? COMPARISON:Mammograms dating back to 2022 ? Tomosynthesis craniocaudal and mediolateral oblique views of both breasts were obtained using low- dose digital technique. ?? This examination was reviewed with the aid of CAD. ? FINDINGS: ? The breast tissue is almost entirely fatty. There are no dominant masses, typically malignant calcifications or architectural distortion. ??There has been no significant interval change. ? MM/MM screening mammo BI w/CAD ?? Procedure Note Mike Tijerina Jr., MD - 10/03/2024 [facility] [address] [place] [address] Mammography Report Signed Patient: Brandon Diamond AMR#: [id number] 6 : 1960Acct:[id number] Age/Sex: 64 / FAdm Date: 10/03/24 Loc: [place] Room:Type: [facility] Attending Dr: Estefany Serrano APRN, INSTITUTION LIBRARIAN-C Ordering Provider: Estefany Serrano APRN, NPC Date of Service: 10/03/24 Procedure(s): MM screening mammo BI w/CAD Accession Number(s): ([id number]) MM/MM screening mammo BI w/CAD: Annualexam Copies to: MD Estefany Morrison APRN, NPC CLINICAL DATA: Screening for malignancy. SCREENING MAMMOGRAM - FULL FIELD DIGITAL WITH TOMOSYNTHESIS AND CAD COMPARISON:Mammograms dating back to 2022 Tomosynthesis craniocaudal and mediolateral oblique views of both breastswere obtained using low- dose digital technique. This examination was reviewed with the aid ofCAD. FINDINGS: The breast tissue is almost entirely fatty. There are no dominant masses, typically malignant calcifications or architectural distortion. There has been no significant interval change. MM/MM screening mammo BI w/CAD IMPRESSION: NO MAMMOGRAPHIC EVIDENCE OF MALIGNANCY. ROUTINE FOLLOW-UP IS RECOMMENDED IN ONE YEAR. RESULT CODE: 1 Negative DENSITY CODE: 1 (<25% glandular) The breasts are almost entirely fatty. FOLLOW UP: 1YR The false-negative rate of mammography is approximately 10-percent. Management of a palpable abnormality must be based on clinical grounds. Patient was entered into a reminder system with a target due date for thenext mammogram. Impression dictated by: Mike Tijerina Jr., D.ORaulito10/03/2024 9:48 AM Dictation Location: [facility] Dictated By: Mike Tijerina Jr, DO 10/03/24 0947 Signed By: <Electronically signed by Mike Tijerina Jr, DO inOV> 10/03/24 0948 Authorizing ProviderResult TypeResult StatusJessica R Lause NPIMG BI PROCEDURES Final Result * Microalbumin / creatinine urine ratio (04/03/2024 2:00 PM EDT)Specimen (Source)Anatomical Location / LateralityCollection Method / VolumeCollection TimeReceived TimeUrineUrine specimen obtained by clean catch procedure / Unknown Narrative Authorizing ProviderResult TypeResult StatusAmy Warchol NPLAB URINE ORDERABLES Final Result * Q - THINPREP(R) TIS AND HPV MRNA E6/E7 RFL HPV 16,18/45 (08/22/2020)Component ValueRef RangeTest MethodAnalysis TimePerformed AtPathologist Signature CLINICAL INFORMATION:None givenNOMS LEGACY EXTERNAL LABLMP:None givenNOMS LEGACY EXTERNAL LABPREV. PAP:None givenN[facility] LE[facility] EXTERNAL LABPREV. BX:None givenN[facility] EXTERNAL LABSOURCE:None given[facility] STATEMENT OF ADEQUACY:SATISFACTORY FOR EVALUATIONNOMS LEGACY EXTERNAL LAB INTERPRETATION/RESULT:SEE NOTENOMS LEGACY EXTERNAL LABComment: Negative for intraepithelial lesion or malignancy. Atrophic pattern; predominantly parabasal cells COMMENT:SEE NOTENOMS LEGACY EXTERNAL LABComment: This Pap test has been evaluated with computer assisted technology. Parabasal cells in smears that lack maturation due to atrophy or other hormonal reasons cannot be differentiated from transformation zone cells. Accordingly, presence or absence of endocervical or transformation zone components cannot be reported in this patient. Tip of collection device in vial FRUIT PEELER:SEE REANNANOMS LEGACY EXTERNAL LABComment: EWA CASILLAS(ASCP) CT screening location: ROAM Data [facility], [address] [place] [address]. COMMENTSEE NOTENOMS LEGACY EXTERNAL LABComment: EXPLANATORY NOTE: The Pap is a screening test for cervical cancer. It is not a diagnostic test and is subject to false negative and false positive results. It is most reliable when a satisfactory sample, regularly obtained, is submitted with relevant clinical findings and history, and when the Pap result is evaluated along with historic and current clinical information. HPV MRNA E6/E7Not DetectedNot DetectedNOMS LEGPROVIDENCE [facility] EXTERNAL LABComment: Methodology: Glass Rolling Machine Operator-Mediated Amplification This assay detects E6/E7 viral messenger RNA (mRNA) from 14 high-risk HPV types (16,18,31,33,35,39,45,51,52,56,58,59,66,68). The analytical performance characteristics of this assay have been determined by [employer]. The modifications have not been cleared or approved by the FDA. This assay has been validated pursuant to the CLIA regulations and is used for clinical purposes. For additional information, please refer to http://education.[employer]/UBS928w5 (This link if provided for information/ educational purposes only.) Specimen (Source)Anatomical Location / LateralityCollection Method / Volume Collection TimeReceived Time08/22/2020 Narrative Authorizing ProviderResult TypeResult StatusMarisol DoughertyECW LABSFinal Result Performing OrganizationAddressCity/State/ZIP CodePhone Number [facility] * Colonoscopy (09/12/2019 12:00 PM EDT)Anatomical RegionLateralityModality EndoscopySpecimen (Source)Anatomical Location / LateralityCollection Method / VolumeCollection TimeReceived Time09/12/2019 12:00 PM EDT Narrative 09/12/2019 12:00 PM EDT PERFORMED AT [facility] LOCATION:[id number] Normal Procedure Note CONVERSION, GENERIC - 11/17/2022 PERFORMED AT [facility] LOCATION:[id number] Normal Authorizing ProviderResult TypeResult StatusMarisol Shasha DelonteckENDOSCOPY PROCEDURE ORDERABLESFinal Result from Last 3 Months or Most Recently Relevant to Health Maintenance Additional Health Concerns Active ProblemsNoted DateDiagnosed DatePatient on antidepressant monitoring plan 02/23/2023aseline PHQ-9002/23/2023 Insurance Care Teams Team MemberRelationshipSpecialtyStart DateEnd Keyshawn Schumacher MD [address] [place] [address] PCP - GeneralFamily Medicine11/25/22 Marisol Benoit NP [address] [address] [place] [address] PCP - [place]02/01/25 Estefany Serrano NP [address] [place] [address] Nurse PractitionerFamily Medicine03/14/25
--- OUTSIDE RECORDS SUMMARY | 2025-05-01 08:56 | XMS_ITS | Encounter Summary ---
Author Organization [facility] Address [address] [place] [address] Care Team Providers Care Concrete Paving Supervisor Name Role Phone Keyshawn Schumacher MD Primary Care Provider [phone] Marisol Benoit CHARCOAL KILN BURNER Unavailable Estefany Serrano CHARCOAL KILN BURNER Unavailable [phone] Encounter Details DateTypeDepartmentCare Team (Latest Contact Info)Kejkupntnqe84/20/2025Travel Social History Tobacco UseTypesPacks/DayYears UsedDateSmoking Tobacco: NeverSmokeless Tobacco: NeverAlcohol UseStandard Drinks/WeekCommentsNever0 (1 standard drink = 0.6 oz pure alcohol)caffeine intake: 2-3 cups per day of [id number] Health Literacy AnswerDate RecordedHow often do you [...] relatives?Once a week07/19/2024How often do you attend religious or evangelical services?Never07/19/2024Do you belong to any clubs or organizations such as religious groups, unions, fraternal or athletic groups, or school groups?No 07/19/2024How often do you attend meetings of the clubs or organizations you belong to?Never07/19/2024re you , , , , never , or living with a partner?Uobovdo1807/19/2024UDIT-CAnswerDate RecordedQ1: How often do you have a [...] hard at all07/19/2024PHQ-2AnswerDate Recorded Patient Health Questionnaire-2 Fluue581Finmount[facility] [place] [facility] - Occupational Stress QuestionnaireAnswerDate [...] were you homeless or living in a care home (including now)?No07/19/2024CommentsNoSex and Gender InformationValueDate RecordedSex Assigned at BirthNot on fileLegal SexFemale 09/15/2022 11:07 PM EDTGender IdentityNot on fileSexual OrientationNot on file documented as of this encounter Plan of Treatment DateTypeDepartmentCare Team (Latest Contact Info)Jxwmqeogwxi39/17/2025 8:00 AM ESTOffice Visit [facility] [address] [place] [phone] Estefany Serrano NP [address] [place] [phone] documented as of this encounter Goals GoalPatient Goal TypeAssociated ProblemsRecent ProgressPatient-Stated?Author Help patient manage antidepressant medication Care PlanPatient on antidepressant monitoring Marisol Fraire, CHARCOAL KILN BURNER Baseline PHQ-9 Care PlanBaseline PHQ-9Marisol Martell NPdocumented as of this encounter Visit Diagnoses Not on filedocumented in this encounter Additional Health Concerns Active ProblemsNoted DateDiagnosed DatePatient on antidepressant monitoring plan 02/23/2023aseline PHQ-9002/23/2023ssessmentNoted TimePHQ-9 Depression Total Score: 7009/06/2023 9:05 AM ESTdocumented as of this encounter Care Teams Team MemberRelationshipSpecialtyStart DateEnd Date Keyshawn Schumacher MD [address] [place] [address] PCP - GeneralFamily Medicine11/25/22 Marisol Benoit, GUERLINE [address] [address] PCP - [place]02/01/25 Estefany Serrano NP [address] [place] [address] Nurse PractitionerFamily Medicine03/14/25documented as of this encounter
--- OUTSIDE RECORDS SUMMARY | 2025-05-01 08:56 | XMS_ITS | Clinical Summary ---
Author Organization [facility] Address [id number] [place] [address] Care Team Providers Care Marine Reporter Name Role Phone Unavailable Primary Care Provider Unavailabl e Family History Medical HistoryRelationNameCommentsHeart diseaseOtherFAM HXHypertensionOtherFAM HXRelationNameStatusCommentsOtherFAM HX Social History Tobacco UseTypesPacks/DayYears UsedDateSmoking Tobacco: Never AssessedChildcare AnswerDate YwphjvzzCnsycmokbBtliruk72/12/2019EmploymentAnswerDate Recorded PpflwmazmjMshbjks62/12/2019CommentsUnknownSex and Gender Information ValueDate RecordedSex Assigned at BirthNot on fileLegal ZqeVmqxhv46/06/2015 12:01 PM EDTGender IdentityNot on fileSexual OrientationNot on file Plan of Treatment Health MaintenanceDue DateLast DoneCommentsDepression Kuwcgmgxy64/27/1972Tobacco Oqducswcj86/27/1972Adult BMI Yxyvfgjee37/27/1978DTaP,Tdap and Td Vaccines (1 - Tdap)02/27/1979Zoster (Shingles) Vaccine (1 of 2)02/27/2010Fall Risk Screening 02/27/2025Influenza Vuavotd6103/04/2025 Medical Devices Not on file
--- OUTSIDE RECORDS SUMMARY | 2025-05-01 08:56 | XMS_ITS | Encounter Summary ---
Author Organization [facility] Address [address] [place] [address] Care Team Providers Care Pipe Stress Engineer Name Role Phone Keyshawn Schumacher MD Primary Care Provider [phone] Marisol Benoit NP Unavailable Estefany Serrano DOG RACES MANAGER Unavailable [phone] Encounter Details DateTypeDepartmentCare Team (Latest Contact Info)Jzboyevbeze46/28/2025bstract [facility] [address] [place] [phone] Estefany Serrano DOG RACES MANAGER [address] [place] [address] Social History Tobacco UseTypesPacks/DayYears UsedDateSmoking Tobacco: NeverSmokeless Tobacco: NeverAlcohol UseStandard Drinks/WeekCommentsNever0 (1 standard drink = 0.6 oz pure alcohol)caffeine intake: 2-3 cups per day of cgmvivO3286 Health Literacy AnswerDate RecordedHow often do you [...] relatives?Once a week07/19/2024How often do you attend scientologist or samaritan services?Never07/19/2024Do you belong to any clubs or organizations such as scientologist groups, unions, [employer] or athletic groups, or school groups?No 07/19/2024How often do you attend meetings of the clubs or organizations you belong to?Never07/19/2024re you , , , , never , or living with a partner?Tqzzaty8207/19/2024UDIT-CAnswerDate RecordedQ1: How often do you have a [...] hard at all07/19/2024PHQ-2AnswerDate Recorded Patient Health Questionnaire-2 Nrexv412Finj[facility] [place] [facility] Occupational [facility] - Occupational Stress QuestionnaireAnswerDate [...] steady place to sleep or slept in [facility] (including now)?No 03/21/2023Housing Stability Vital SignAnswerDate RecordedIn the last 12 months, was there a time when you were not able to pay the mortgage or rent on time?No 07/19/2024In the past 12 months, how many times have you moved where you were living?t any time in the past 12 months, were you homeless or living in a prison (including now)?No07/19/2024CommentsNoSex and Gender InformationValueDate RecordedSex Assigned at BirthNot on fileLegal SexFemale 09/15/2022 11:07 PM EDTGender IdentityNot on fileSexual OrientationNot on file documented as of this encounter Plan of Treatment DateTypeDepartmentCare Team (Latest Contact Info)Bhvmmvaqayp12/17/2025 8:00 AM ESTOffice Visit [facility] [address] [place] [address] [phone] Estefany Serrano, DOG RACES MANAGER [address] [place] [address] documented as of this encounter Goals GoalPatient [...] Date Keyshawn Schumacher MD [address] [place] [address] PCP - GeneralFamily Medicine11/25/22 Marisol Benoit, GUERLINE [address] [place] [address] PCP - Guero MARTINEZ02/01/25 Estefany Serrano NP [address] [place] [address] Nurse PractitionerFamily Medicine03/14/25documented as of this encounter
--- OUTSIDE RECORDS SUMMARY | 2025-05-01 08:56 | XMS_ITS | Clinical Summary ---
Author Organization [facility] Address [address] [facility] [place] [address] Care Team Providers Care Chisel Grinder Name Role Phone Carlo Mabry MD Unavailable [phone] Source Comments The following information is NOT included in Care Everywhere downloads:Psychiatric notes, ECG results, Cardiac Rehab notes, Pulmonary Function notes, data from SmartForms (includes but not limited toPregnancy data,audiograms, eye exams, pre-surgical evaluation notes, well-child exam data).[facility] Allergies No known active allergies Medications MedicationSigDispense QuantityRefillsLast FilledStart DateEnd DateStatus citalopram (CELEXA) 20 MG tablet 12/31/2017Active hydroxychloroquine (PLAQUENIL) 200 MG tablet 12/31/2017Active methotrexate 2.5 MG tablet once weekly.01/05/2018Active metoprolol XL (TOPROL-XL) 50 MG XL tablet 12/31/2017Active aspirin 81 MG tablet Take 81 mg by mouth daily.Active duloxetine (CYMBALTA) 60 MG capsule Take 60 mg by mouth daily.Active Active Problems ProblemNoted DateDiagnosed DateArachnoid cyst11/13/2018Aftercare following surgery of the musculoskeletal xijeix7703/01/2018Osteoarthritis of left thumb 11/04/2017 Overview (11/04/2017): Added automatically from request for surgery [id number] Rheumatoid tbuiofhol67/13/2018On methotrexate jgljynn5010/14/2017Osteoporosis 10/14/20175613Tuftjvdnqfxj21/13/2018 Immunizations ImmunizationAdministration DatesNext DueInfluenza, injectable, quadrivalent, preservative free (IHN=007)04/16/2020,03/03/2020,04/13/2019Influenza, injectable, trivalent, preservative (MVL=733)04/02/2021neumococcal conjugate 13 valent (PCV13) (CQJ=697)08/12/2020neumococcal polysaccharide 23 Valent (PPSV23) (CVX=33)07/18/2018Tdap (HAT=488)08/12/2020Zoster Recombinant (RZV,Shingles) (BDE=739)06/06/2021,2021 Social History Tobacco UseTypesPacks/DayYears UsedDateSmoking Tobacco: NeverSmokeless Tobacco: Never Tobacco Cessation:Counseling Given: No CommentsNoSex and Gender InformationValueDate RecordedSex Assigned at BirthNot on fileLegal UifHjwwhc78/05/2018 9:51 AM EDTGender IdentityNot on file Sexual OrientationNot on file Last Filed Vital Signs Vital SignReadingTime TakenCommentsBlood Supnusxx823/6807 1:15 PM EDT Phurq2980 1:15 PM BZHVwcsqknbzru91.7 ??C (98.1 ??F)01/30/2018 12:45 PM EDTRespiratory Uswl4364 1:15 PM EDTOxygen Tmeavdslzm63%01/30/2018 1:15 PM EDTInhaled Oxygen Concentration--Andrug894.8 kg (262 lb)02/06/2018 11:58 AM NWLHjquqn005.1 cm (5' 5 )02/06/2018 11:58 AM EDTBody Mass Index43.608 11:58 AM EDT Plan of Treatment Health MaintenanceDue DateLast UhtdIkmxwyxsIlzatiiyrqo1960Hepatitis C Oijsvrsr83/27/1978Hepatitis A (HAV) Vaccine (optional start 19+ years)02/27/1979 Pap Smear02/27/19818223Kiwjxderehg45/27/2000CRC Jqyqiiprb47/27/2005Cholesterol 02/27/2005Cologuard (Stool DNA)02/27/2005FIT02/27/2005Annual Wellness Visit (G0438)02/02/2020Hepatitis B (HBV) Vaccine (optional start 60+ years)2020 Pneumococcal Vaccine(s) (50+ yrs) (3 of 3 - PPSV23, PCV20 or PCV21)07/18/2023 08/12/2020, 07/18/2018Bone Xmccfehxrwdw51/27/2025COVID-19 Vaccine (4 - 2024- season), 10/01/2020, 09/10/2020Influenza Vaccine (#1) 509/, 04/16/2020, 03/03/2020, Additional history existsTetanus (Td or Tdap) Njenaue00/SV vaccine (adult) (1 - 1-dose 75+ series)02/27/2035Tdap GpkiucwRfmhlekjl01/09/2021hingles (RZV) VaccineCompleted 06/06/2021, 2021 Insurance Care Teams Team MemberRelationshipSpecialtyStart DateEnd Date [place] [id number] [place] [address] PhysicianOrthopaedic Niruohp29/6/20
--- OUTSIDE RECORDS SUMMARY | 2025-05-01 08:56 | XMS_ITS | Clinical Summary ---
Author Organization [facility] Address [address] [place] [address] Phone Care Team Providers Care Division Supervisor Name Role Phone Lalo Jenkins DO Primary Care Provider [phone] Social History Tobacco UseTypesPacks/DayYears UsedDateSmoking Tobacco: Never Assessed CommentsUnknownSex and Gender InformationValueDate RecordedSex Assigned at Not on fileLegal HbyYzhzlm27/26/2022 6:01 PM ESTGender IdentityNot on fileSexual OrientationNot on file Plan of Treatment Health MaintenanceDue DateLast DoneCommentsCT Oonqsjlyozor1960Colonoscopy 1960Colorectal Cancer Zpdsfquon1960FIT-DNA (Cologuard)1960FIT 1960Lipid Panel1960Medicare Annual Wellness Visit (AWV)1960 Fvwcrmtqggtxw1960MMR Vaccines (1 of 1 - Standard series)02/27/1961 Hepatitis C Hdchpqmkv28/27/1978Cervical Cancer Pbkfaxutm57/27/1981HPV/Cotest 02/27/1981Pap Smear02/27/1981DTaP/Tdap/Td Vaccines (1 - Tdap)02/27/1982Mammogram 2000Pneumococcal Vaccine (1 of 1 - PCV)02/27/2010Zoster Vaccines (1 of 2) 02/27/2010Influenza Vaccine (#1)5Bone Density Scan5COVID-19 Vaccine (1 - 2024- season)2025RSV High Risk: (Elderly (60+) or Population) (1 - 1-dose 75+ series)02/27/2035HIB VaccinesAged OutNo longer eligible based on patient's age to complete this topicHPV VaccinesAged OutNo longer eligible based on patient's age to complete this topicHepatitis A VaccinesAged OutNo longer eligible based on patient's age to complete this topic Hepatitis B VaccinesAged OutNo longer eligible based on patient's age to complete this topicIPV VaccinesAged OutNo longer eligible based on patient's age to complete this topicMeningococcal VaccineAged OutNo longer eligible based on patient's age to complete this topicRotavirus VaccinesAged OutNo longer eligible based on patient's age to complete this topic Insurance Care Teams Team MemberRelationshipSpecialtyStart DateEnd Lalo Jenkins DO PCP - General08/20/09
== END 2025-05-01 08:54 | disposition home or self-care (01) ==
LOC: FHNEUROLOG 08:53
PROVIDERS: PCP Nurse Practitioner Family; Visit Provider Psychiatry & Neurology Neurology
DX: G47.33 Obstructive sleep apnea (adult) (pediatric) (principal); R06.83 Snoring; G47.10 Hypersomnia, unspecified
CPT/HCPCS: G0463